=== PATIENT | female | born 1950 | race Caucasian/White ===

== ENCOUNTER 2018-10-19 12:11 | Inpatient (IN) ==
[~2018-10-19 12:11] MED LIST: AZACTAM 1 GM in NS 50 ML IV SCH
[2018-10-19 14:35] LABS: URINE SOURCE CLEAN CATCH
[2018-10-19 15:00] LABS: HEMATOCRIT 27.1 % (37.0-47.0); HEMOGLOBIN 8.6 g/dL (12.0-16.0); MCV 90.9 FL (81-99); RBC 2.98 XMIL (4.2-5.4); WBC 12.57 X1000 (4.8-10.8)
[2018-10-19 15:01] LABS: BASO# 0.03 X1000 (0.0-0.2); BASO% 0.2 % (0.0-0.8); EOS# 0.28 X1000 (0.0-0.7); EOS% 2.2 % (0.0-10.0); IMM GRAN# 0.03 X1000 (0.0-0.04); IMM GRAN% 0.2 % (0.0-0.5); LYMPH# 1.56 X1000 (1.2-3.4); LYMPH% 12.4 % (20.5-51.1); MCH 28.9 PG (27-31); MCHC 31.7 g/dL (33-37); MONO% 7.2 % (1.7-9.3); MPV 9.1 FL (7.4-10.4); NEUT# 9.77 X1000 (1.4-6.5); NEUT% 77.8 % (42.2-75.2); PLT 474 X1000 (130-400); RDW 15.3 % (11.5-14.5); UR EPITHELIAL CELLS <10 /HPF (<10); URINE BACTERIA 3+ /HPF; URINE RBC TNTC /HPF (<10); URINE WBC TNTC /HPF (<10)
[2018-10-19 15:02] LABS: BILIRUBIN URINE NEGATIVE (NEGATIVE); BLOOD URINE LARGE (NEGATIVE); COLOR BROWN; GLUCOSE URINE NEGATIVE (NEGATIVE); KETONE URINE NEGATIVE (NEGATIVE); LEUKOCYTES URINE LARGE (NEGATIVE); NITRITE URINE NEGATIVE (NEGATIVE); PROTEIN URINE 200 mg/dL (NEGATIVE); SP GRAVITY URINE 1.009; TURBIDITY URINE TURBID (CLEAR); UROBILINOGEN URINE NORMAL (NORMAL)
[2018-10-19 16:11] LABS: URINE YEAST NONE SEEN
[2018-10-19 16:21] LABS: ALB/GLOB RATIO 1.3; ALBUMIN 3.9 g/dL (3.5-5.0); CALCIUM 9.4 mg/dL (8.8-10.2); CREATININE 2.8 mg/dL (0.5-0.9); TOTAL BILIRUBIN 0.18 mg/dL (0.20-1.00)
[2018-10-19] MEDS ORDERED: NS 1,000 ML IV ONE (16:26)
--- NOTE | 2018-10-19 16:26 | PROVIDER DOCUMENTATION ---
HPI-Female /OB/Breast - General Chief Complaint: Female Stated Complaint: FEMALE Time Seen by Provider: 10/19/18 16:15 Source: reports: patient Allergies/Adverse Reactions: Patient Allergies Allergy/AdvReac Type Severity Reaction Status Date / Time cephalexin [From Keflex] Allergy SWELLING Verified 04/22/18 17:25 Home Medications: Home Medication List Medication Instructions Recorded Confirmed Last Taken Type Amitriptyline [Elavil] 25 mg PO HS 06/09/14 04/22/18 04/21/18 History Atorvastatin Calcium 20 mg PO HS 06/09/14 04/22/18 04/21/18 History Furosemide 20 mg PO DAILY 06/09/14 04/22/18 04/21/18 History Hydroxyzine [Atarax] 25 mg PO TID PRN #20 tablet 07/04/15 04/22/18 04/21/18 Rx Insulin Detemir [Levemir] 50 unit SUBQ DAILY 07/04/15 04/22/18 04/21/18 History Sitagliptin Phos/Metformin HCl 1 tab PO BID 07/04/15 04/22/18 04/21/18 History [Janumet 50-1,000 mg Tablet] Tizanidine [Zanaflex] 1 tab PO DAILY 07/04/15 04/22/18 04/21/18 History Venlafaxine E.r. [Effexor Xr] 150 mg PO DAILY 07/04/15 04/22/18 04/21/18 History Tramadol [Ultram] 50 mg PO Q8HR #20 tablet 04/24/16 04/22/18 04/21/18 Rx Hydrocodone/APAP 10 mg/325 mg 1 each PO Q6H PRN #12 tablet 08/06/16 04/22/18 04/21/18 Rx [[place]-10] Nitrofurantoin Monohyd/M-Cryst 100 mg PO BID #10 cap 04/23/18 Unknown Rx [Macrobid 100 mg Capsule] - History of Present Illness-Female /OB Nature of Presenting Problem: 68 YOF WITH PMH OF DM PRESENTS WITH C/O DYSURIA AND HEMATURIA. SHE REPORTS THIS HAS BEEN PRESENT X 4 DAYS. SHE HAS BEEN FEBRILE AT HOME WITH A TMAX OF 102, SHE IS CURRENTLY AFEBRILE. SHE C/O B FLANK PAIN. DENIES N/V/D, SOB, CP. SHE DEOS AHVE HX OF FREQUENT UTI'S Does patient report she is ?: No Location of complaint: reports: suprapubic, generalized flank Radiation: reports: none Quality of Pain: reports: aching Onset/Duration: reports: 4 days ago Timing: reports: still present Context/Activities at Onset: reports: none Vaginal Symptoms: reports: no symptoms Vaginal Bleeding Amount: None Urinary Symptoms: reports: dysuria, frequency, hematuria, hesitancy, urgency, low back pain Related Symptoms: reports: no symptoms Associated Symptoms: reports: fever/chills Similar Symptoms Previously?: Yes Recently seen or treated by another doctor?: No Review of Systems - Adult - REVIEW OF SYSTEMS - ADULT Constitutional: reports: see HPI, fever. denies: no symptoms reported, chills, fatique, night sweats, weight gain, weight loss, other Eyes: reports: no symptoms reported. denies: see HPI, discharge, dry eyes, decreased vision, blurred vision, double vision, eye pain, redness, other Ears, Nose, Mouth & Throat: reports: no symptoms reported. denies: see HPI, ear discharge, ear pain, hearing loss, tinnitus, epistaxis, sinus problem, nose pain, loose teeth, mouth/dental pain, mouth swelling, hoarseness, throat pain, throat swelling, other Cardiovascular: reports: no symptoms reported. denies: see HPI, chest pain, edema, heart murmur, irregular heart rate, orthopnea, palpitations, poor circulation, PND, syncope, other Respiratory: reports: no symptoms reported. denies: see HPI, chronic cough, cough, dyspnea on exertion, excessive sputum production, hemoptysis, pleurisy, shortness of breath, wheezing, other Gastrointestinal: reports: no symptoms reported. denies: see HPI, abdominal pain, hematemesis, constipation, diarrhea, difficulty swallowing, frequent heartburn, nausea, poor appetite, rectal bleeding, vomiting, other Genitourinary: reports: see HPI, dysuria, frequency, flank pain, frequent UTI's, hematuria, hesitency, urgency Musculoskeletal: reports: no symptoms reported. denies: see HPI, bone pain, b ack pain, frequent leg cramps, joint pain, joint swelling, muscle aches, muscle weakness, neck pain, other Integumentary: reports: no symptoms reported. denies: see HPI, hives, hair loss, itching, mole changes, nail changes, rash, skin sores/ulcer, skin thickening, other Neurological: reports: no symptoms reported. denies: see HPI, ataxia, dizzin ess/vertigo, headache/migraines, loss of balance, numbness, paresthesia, seizure, slurred speech, syncope, tremors, other Psychiatric: reports: no symptoms reported. denies: see HPI, anxiety, anti- depressant use, alcohol/drug dependence, depression, emotional problems, inso mnia, panic attacks, suicidal thoughts, other Endocrine: reports: no symptoms reported. denies: see HPI, change in skin pigment, excessive sweating, goiter, cold intolerance, heat intolerance, increased hunger, increased thirst, polyuria, other Hematologic/Lymphatic: reports: no symptoms reported. denies: see HPI, blood clots, easy bruising, low blood count, lymphedema, prolonged bleeding, swollen lymph nodes, transfusions, other Allergic/Immunologic: reports: no symptoms reported. denies: see HPI, allergic reactions, allergic rhinitis, asthma, eczema, food allergy, frequent infections, hay fever, hives, positive PPD, urticaria, other Past History - Adult - PAST MEDICAL HISTORY-ADULT Review of Records: reports: Nursing Assessment Review, Social history reviewed & non-contributory. Major Childhood Illnesses: reports: denies history Cardiovascular: reports: CHF, HTN Respiratory: reports: denies history Gastrointestinal: reports: denies history Obstetrical/Gynecological: reports: denies history Genitourinary: reports: denies history Musculoskeletal: reports: arthritis (RA), chronic pain Neurological: reports: denies history Endocrine/Immune: reports: Diabetes Other Conditions: reports: denies history - PRIOR SURGERIES/PROCEDURES Surgical/Procedure History: reports: hernia repair - IMMUNIZATION STATUS Childhood Immunizations: See Nurse Assessment Flu Vaccine: See Nurse Assessment - FAMILY HISTORY Family History: reviewed, not pertinent Physical Exam-General - PHYSICAL EXAM-ADULT Initial Vital Signs Reviewed: Yes - CONSTITUTIONAL General Appearance: alert, no apparent distress - EYES Eyes: PERRL/EOMI - HEAD, EARS, NOSE, MOUTH & THROAT HENMT: normocephalic/atraumatic, moist mucous membranes - NECK Neck: non-tender, full range of motion, supple - RESPIRATORY Respiratory: chest non-tender, lungs clear, normal breath sounds - CARDIOVASCULAR Cardiovascular: normal peripheral pulses, tachycardia - GASTROINTESTINAL (ABDOMEN) Abdominal Exam: normal bowel sounds, non tender, soft - LYMPHATIC Lymphatic: no adenopathy - MUSCULOSKELETAL Back Exam: normal inspection, CVA tenderness (BILATERAL). negative: no CVA tenderness Extremity: normal range of motion, non-tender, normal gait - SKIN Integumentary: normal color, normal turgor, warm/dry - NEUROLOGIC Neurologic: grossly normal - PSYCHIATRIC Psych/Mental Status: normal mood/affect, oriented x 3 Progress - PLAN OF CARE/RESULTS Progress/Plan/Lab Results: Vital Signs - 8 hr 10/19/18 12:33 10/19/18 15:55 Temperature 99.2 F 98.3 F Pulse Rate 117 H 104 H Respiratory Rate 18 20 Blood Pressure 123/65 150/69 O2 Sat by Pulse Oximetry 98 97 Laboratory Results - last 24 hr 10/19/18 10/19/18 10/19/18 12:45 12:45 12:45 WBC 12.57 H RBC 2.98 L Hgb 8.6 L Hct 27.1 L MCV 90.9 MCH 28.9 MCHC 31.7 L RDW Std Deviation 15.3 H Plt Count 474 H MPV 9.1 Immature Gran % (Auto) 0.2 Neut % (Auto) 77.8 H Lymph % (Auto) 12.4 L Dare % (Auto) 7.2 Eos % (Auto) 2.2 Baso % (Auto) 0.2 Immature Gran # (Auto) 0.03 Neut # (Auto) 9.77 H Lymph # (Auto) 1.56 Dare # (Auto) 0.90 H Eos # (Auto) 0.28 Baso # (Auto) 0.03 Sodium 138 Potassium 5.0 Chloride 102 Carbon Dioxide 16 L Anion Gap 20 BUN 58 H Creatinine 2.8 H Estimated GFR/1.73 m2 17 BUN/Creatinine Ratio 21 Glucose 182 H Calculated Osmolality 297 Calcium 9.4 Total Bilirubin 0.18 L AST 9 L ALT 10 Alkaline Phosphatase 94 Total Protein 7.0 Albumin 3.9 Globulin 3.1 Albumin/Globulin Ratio 1.3 Urine Source CLEAN CATCH Urine Color BROWN Urine Turbidity TURBID Urine pH 6.0 Ur Specific [place] 1.009 Urine Protein 200 A Ur Glucose (Stick) NEGATIVE Ur Ketones (Stick) NEGATIVE Urine Blood LARGE A Urine Nitrite NEGATIVE Urine Bilirubin NEGATIVE Urobilinogen Dipstick NORMAL Urine Leukocytes LARGE A Urine WBC (Auto) TNTC A Urine RBC (Auto) TNTC A U Epithel Cells (Auto) <10 Urine Bacteria (Auto) 3+ Urine Crystals Not Reportable Small Round Cells Not Reportable Urine Casts Not Reportable Urine Yeast-like Cells NONE SEEN Orders Category Date Time Status Saline Loc NOW Care 10/19/18 16:26 Active BC [BLOOD CULTURE] [BLDCUL] Stat Lab 10/19/18 17:17 Uncollected CBC WITH DIFF [HEME] Stat Lab 10/19/18 12:45 Completed CMP [COMPREHENSIVE METABOLIC PANEL] [CHEM] Stat Lab 10/19/18 12:45 Completed LACTATE, PLASMA [CHEM] Stat Lab 10/19/18 17:28 Uncollected URINALYSIS W/POSS RFLX CULT [URINALYSIS] Stat Lab 10/19/18 12:45 Completed URINE CULTURE [RM] Routine Lab 10/19/18 15:24 Received URINE MANUAL MICROSCOPIC [URINALYSIS] Stat Lab 10/19/18 12:45 Completed 0.9% Sodium Chloride Inj [Ns] 1,000 ml Med 10/19/18 16:26 Discontinued IV 999 mls/hr Ciprofloxacin 400 mg/D5w [Cipro 400 mg/D5w] Med 10/19/18 17:00 Active 400 mg in 200 ml IV ONCE Ciprofloxacin 400 mg/D5w [Cipro 400 mg/D5w] Med 10/19/18 16:30 Ordered 400 mg in 200 ml IV Q12H Result Diagrams: 10/19/18 12:45 10/19/18 12:45 - CONSULTS/PCP/HOSPITALIST Notification #1 *Consult/PCP/Hospitalist*: KENNA MAHER Time Discussed: 17:48 Consult Disposition: Admit Departure - Departure Date of Disposition Decision: 10/19/18 Time of Disposition Decision: 17:48 DIAGNOSIS: REYNALDO (acute kidney injury), UTI (urinary tract infection) Disposition: ADMITTED INPATIENT 09 Certified Medical Emergency: Emergent Condition: Stable Referrals and Follow-Ups: Love Harrell MD [Primary Care Provider] - - Critical Care Note This patient required my direct & personal management of CC.: No Attestation - Physician/ JAROD Attestation Patient care was provided by Advanced Practice Provider:: Yes Advanced Practice Provider:: Chela Maria Advanced Practice Provider documentation review:: The Mid-level provider documentation, treatment plan and medical decision making was reviewed by the physician who agrees with all treatment and medical decision making by the MLP. The physician spent face to face time with patient:: No Advanced Practice Provider documentation review:: Supervising physician onsite and consulted in the evaluation and care of this patient. The physician did not have a face to face encounter with the patient.
[2018-10-19] MEDS ORDERED: CIPRO 400 MG/D5W 400 MG/200 ML IVPB IV SCH (16:30)
[2018-10-19] MEDS ORDERED: CIPRO 400 MG/D5W 400 MG/200 ML IVPB IV ONE (17:00)
[2018-10-19] MEDS ORDERED: ZOFRAN IV PRN (18:03)
[2018-10-19] MEDS ORDERED: NS 1,000 ML IV SCH (18:15)
[2018-10-19] MEDS ORDERED: AZACTAM 1 GM in NS 50 ML IV ONE (18:30)
--- NOTE | 2018-10-19 19:07 | HISTORY AND PHYSICAL ---
CHIEF COMPLAINT: Hematuria, back pain. HISTORY OF PRESENT ILLNESS: This is a 68-year-old female with a prior history of congestive heart failure, diabetes, hypertension, who presents to the emergency room complaining of about 4 to 5 days of hematuria, dysuria and low back pain. She states that she feels like she has a urinary tract infection as this was her symptom prior. She complains of subjective fever, having chills and generalized body aches. She was noted to have a temperature of 99.2 degrees on arrival to the emergency room. PAST MEDICAL HISTORY: 1. Chronic kidney disease. 2. Congestive heart failure. 3. Diabetes mellitus. 4. Hyperlipidemia. 5. Hypertension. 6. Rheumatoid arthritis. PAST SURGICAL HISTORY: Hysterectomy, left foot surgery. SOCIAL HISTORY: She denies alcohol, tobacco, or illicit drug use. ALLERGIES: Cephalexin which causes swelling all over her body. HOME MEDICATIONS: A list will be obtained by the nursing staff and once verified, we will review and restart as appropriate. REVIEW OF SYSTEMS: Discussed with patient with pertinent positives stated in the HPI. She denied any syncope, dizziness, chest pain, palpitations, shortness of breath, cough, any PND, orthopnea, any nausea, vomiting, diarrhea, constipation, black or bloody vomitus or stools. PHYSICAL EXAMINATION: GENERAL: This is a 68-year-old female who is lying on the stretcher in the emergency room in no distress. VITAL SIGNS: Blood pressure is 123/65 with a heart rate of 101, respirations are 20, temperature is 98.3 degrees oral with room air saturations 97 to 98%. EYES: Pupils equal, round, react to light. EOMs are intact. Sclerae anicteric. HEENT: Head is normocephalic, atraumatic. Mucous membranes are moist. NECK: Is supple. Trachea midline. CARDIOVASCULAR: Regular rate and rhythm. S1, S2 appreciated. She has some pretibial edema which she states is chronic. Calves are nontender bilateral with peripheral pulses palpable x4 extremities. PULMONARY: Breath sounds clear. No increased work of breathing noted. Chest rises and falls symmetric with respiration. GASTROINTESTINAL: Soft, nontender, nondistended with bowel sounds in all 4 quadrants. GENITOURINARY: She does have bilateral CVAT. She has no suprapubic tenderness. NEUROLOGIC: She is alert oriented x3. SKIN: Warm and dry. LABS: WBC is 12.5 with hemoglobin 8.6, hematocrit 27.1, platelets of 474,000 sodium 138, potassium 5, BUN 58 with a creatinine of 2.8 and glucose of 182. Urinalysis reveals large amount of blood with large leukocytes, too numerous to count red blood cells and white blood cells, 3+ bacteria. This is a clean-catch specimen. Urine culture is pending. ASSESSMENT: This is a 68-year-old female who presents with 4 to 5 days of low back pain, hematuria, dysuria. She was found to have pyelonephritis by exam. 1. Pyelonephritis/urinary tract infection. Urine cultures have been obtained. We will start aztreonam for antibiotic coverage and then further antibiotics will be culture driven. 2. Acute kidney injury in the setting of chronic kidney disease. We will give IV hydration. We will renal dose medications, hold any renal toxic medications. Repeat labs in the morning. 3. Diabetes mellitus. She will be placed on pattern blood glucose with sliding scale insulin. 4. Hypertension. We are aware. We will continue home medicines as appropriate. 5. Deep vein thrombosis prophylaxis. We will use sequential compression devices and gastrointestinal prophylaxis, we will use Prilosec. Plan discussed with Dr Hair. Further treatments pending hospital course. Dictated by KENNA Rao for Tirso Hair MD cc: KENNA Rao MD I agree with most components of history, physical, assessment and plan. A separate addendum has been dictated. [facility]
--- NOTE | 2018-10-19 20:11 | HISTORY AND PHYSICAL ---
ADDENDUM REPORT Addendum to history and physical dictated by nurse practitioner. I agree with most of the history, physical, assessment, and plan. HISTORY: In brief, Ms Young is a 68-year-old lady with past medical history of insulin-dependent diabetes mellitus type 2, hysterectomy, multiple UTIs, essential hypertension, chronic pain, hyperlipidemia who comes in with chief complaints of hematuria, dysuria and abdominal pain with fever of about 101 to 102 degrees Fahrenheit for 2 weeks duration. In the emergency room she was found to have leukocytosis, acute kidney injury and anemia, so the hospitalist team has been consulted for further management. At the time of my evaluation, she is not feeling good. She is complaining of bilateral flank pain. She is complaining of urinary frequency as well. She denies known history of urinary stone. However, she does mention she has a cystocele and she has not seen any castings trimmer. VITAL SIGNS: Currently, temperature 98.3 degrees, pulse 104, respiratory 20, blood pressure 150/69, saturating 97% room air. PHYSICAL EXAMINATION: Morbidly obese not in any acute distress. Oral cavity is dry. LUNGS: Air entry bilaterally equal. No wheeze, rhonchi, crackles. CARDIOVASCULAR: S1, S2 normal. She has a systolic crescendo-decrescendo murmur best heard over 2nd intercostal space with radiation to right carotid. No rub or gallop. ABDOMEN: Obese, soft. There is a mass palpable on the right lower quadrant which is tender. She also has bilateral costovertebral angle tenderness. She has a large abdominal hernia. She does not have lower extremity edema. She is alert and oriented x3. Examination is nonfocal. LABORATORY DATA: Significant for leukocytosis, normocytic anemia, thrombocytosis, acute kidney injury. Low bicarbonate, pyuria, hematuria. Urine culture is in lab. Blood culture has not been collected. ASSESSMENT AND PLAN: 1. Sepsis due to acute cystitis versus pyelonephritis. 2. Acute blood loss anemia due to hematuria. 3. Acute kidney injury. 4. Suspected aortic stenosis. 5. Constipation. PLAN: Start patient on intravenous fluids, intravenous aztreonam considering previous angioedema to cephalosporins. Follow-up CT scan of the abdomen and pelvis to rule out any nephrolithiasis. I will resume her home medication once they are reconciled. DISPOSITION: I will continue to monitor patient inside the hospital. We will follow up blood culture, urine culture. All of her questions have been answered. cc: Tirso Hair MD
--- NOTE | 2018-10-19 20:30 | Diag Imaging Result Doc PS360 ---
EXAM: CT RENAL STONE SEARCH 10/19/2018 HISTORY: pyelonephritis, flank pain TECHNIQUE: This exam was performed using automated exposure control, adjustment of mA or kV according to patient size, and/or use of iterative reconstruction technique. COMMENT: The current study is compared with the previous study of 04/02/2013. There is a small nodule in the right lower lobe anteriorly which has not changed significantly since the previous examination. There are fibrotic changes in the inferior lingula. There is some fluid in the stomach. There is a nodule in the medial lobe of the left adrenal gland measuring 1.8 cm in diameter with a CT density of -2 Hounsfield units. This is presumably an adenoma and has not changed significantly since the previous study. There are no apparent gallstones. There is no evidence of appendicitis. There is no evidence of hydronephrosis. There is some slight perinephric stranding on the right which was not present at the time the previous study. There is no evidence of urolithiasis. There is a fair amount of stool present in the right colon. There is a segment of the transverse colon which passes through a defect in the anterior abdominal wall. There is some stool beyond this point, but the colon is more distended proximally. There is another defect on the left side which contains some herniated fat. These findings were also present at the time of the previous study. There is no evidence of abdominal aortic aneurysm. There is no evidence of free fluid. The urinary bladder is slightly distended and thickened in appearance. There are degenerative changes in the symphysis pubis. There is gas in the sacroiliac joints bilaterally and at the disc space at L5-S1 and L4-5. There is severe facet arthropathy bilaterally at L5-S1. IMPRESSION: Ventral hernias. Constipation. The possibility of pyelonephritis particularly on the right cannot be excluded in the absence of IV contrast. The possibility of cystitis is suspected. Other nonacute findings as described above. Electronically signed by Marcell Bautista 10/19/2018 8:28 PM
[2018-10-19] MEDS ORDERED: HUMALOG SUBQ SCH (21:00)
[2018-10-19] MEDS: LIPITOR PO SCH (21:31)
[2018-10-19] MEDS: ELAVIL PO SCH (21:31)
[2018-10-19] MEDS: LR 1,000 ML IV SCH (21:32)
[2018-10-19] MEDS: MIRALAX PO SCH (21:33)
[2018-10-19] MEDS: HUMALOG SUBQ SCH (21:41)
[2018-10-19] MEDS: NORCO-10 PO PRN (22:54)
[2018-10-20] MEDS: AZACTAM 1 GM in NS 50 ML IV SCH ×3 (04:08→21:05)
[2018-10-20] MEDS: LR 1,000 ML IV SCH ×2 (04:08→14:35)
[2018-10-20] MEDS: HUMALOG SUBQ SCH ×3 (06:04→21:06)
[2018-10-20] MEDS: NORCO-10 PO PRN ×3 (07:31→21:07)
[2018-10-20 07:58] LABS: BASO# 0.03 X1000 (0.0-0.2); BASO% 0.3 % (0.0-0.8); EOS# 0.32 X1000 (0.0-0.7); EOS% 2.7 % (0.0-10.0); HEMATOCRIT 24.3 % (37.0-47.0); HEMOGLOBIN 7.5 g/dL (12.0-16.0); IMM GRAN# 0.03 X1000 (0.0-0.04); IMM GRAN% 0.3 % (0.0-0.5); LYMPH# 2.06 X1000 (1.2-3.4); LYMPH% 17.6 % (20.5-51.1); MCH 28.5 PG (27-31); MCHC 30.9 g/dL (33-37); MCV 92.4 FL (81-99); MONO# 0.93 X1000 (0.11-0.59); MONO% 7.9 % (1.7-9.3); MPV 8.4 FL (7.4-10.4); NEUT# 8.36 X1000 (1.4-6.5); NEUT% 71.2 % (42.2-75.2); PLT 445 X1000 (130-400); RBC 2.63 XMIL (4.2-5.4); RDW 15.6 % (11.5-14.5); WBC 11.73 X1000 (4.8-10.8)
[2018-10-20 08:23] LABS: CALCIUM 9.1 mg/dL (8.8-10.2); CREATININE 2.3 mg/dL (0.5-0.9); MAGNESIUM 1.4 mg/dL (1.5-2.7); POTASSIUM 4.9 mmol/L (3.5-5.1)
[2018-10-20] MEDS: MAGNESIUM SULFATE 2 GM/S.W.I. 2 GM/50 ML IVPB IV SCH ×2 (10:12→12:59)
[2018-10-20] MEDS: MIRALAX PO SCH ×2 (10:12→21:06)
[2018-10-20] MEDS: LANTUS INSULIN SUBQ SCH (10:15)
[2018-10-20 11:30] LABS: IRON SATURATION 15 %; TIBC 255 ug/dL; TOTAL IRON 38 ug/dL (49-151); UNBOUND IRON 217 ug/dL (112-346)
--- NOTE | 2018-10-20 11:30 | PROGRESS NOTE ---
DATE: 10/20/2018 INTERVAL HISTORY: Ms. Reyes did not have any acute overnight events. She states she continues to have hematuria. Her vitals were unremarkable. Her WBC is improving. Hypomagnesemia is currently improving. Acute kidney injury is improving as well. She states she is feeling the same as yesterday. We discussed about CT scan finding of constipation, cystitis and pyelonephritis. I answered all of her questions. VITALS: Temperature 97.6 degrees, pulse 90, respiratory rate 18, blood pressure 140/60, and saturating 99% on room air.General: Morbidly obese not in any acute distress. HEENT: Oral cavity is moist. Lungs: Air entry bilaterally equal. No wheeze, rhonchi, or crackles. Cardiovascular: S1, S2 normal. Systolic crescendo-decrescendo murmur best heard over 2nd intercostal space with radiation to carotids. No rub or gallop. Abdomen: Obese, soft. There is right quadrant flank tenderness. There is also suprapubic tenderness. There are large abdominal hernias in supraumbilical and left lower quadrant region without any significant tenderness. Neurologic: She is alert and oriented x3. LABORATORY: Labs are suggestive of leukocytosis, normocytic anemia, normal platelet count, and thrombocytosis. She does have improvement in BUN and creatinine as compared to yesterday. Hypomagnesemia is currently being repleted. Urine culture and blood cultures are in lab. Renal CT yesterday performed, and had ventral hernias, constipation and suspicion for pyelonephritis and acute cystitis. ASSESSMENT AND PLAN: 1. Sepsis due to acute cystitis and acute right pyelonephritis. Follow up blood culture and urine culture. Continue intravenous lactated Ringer's, intravenous aztreonam since previously she had Escherichia coli only intermediate sensitive to Zosyn. She had angioedema to Keflex. 2. Gross Hematuria with pyelonephritis. No evidence of nephrolithiasis. Insert Prado catheter for close input and output monitoring. She does have history of cystocele. If her hematuria does not resolve, my plan is to consult Urology tomorrow. Her pyelonephritis could be a contributing factor. She previously had hysterectomy. 3. Anemia. This could be acute blood loss anemia in the setting of hematuria. I will repeat CBC tomorrow morning, and we will transfuse with a goal hemoglobin of more than 7. I will also get iron panel done. 4. Severe constipation. Start patient on MiraLAX and bisacodyl. 5. Others: Chronic back pain and hyperlipidemia. Continue home amitriptyline, [place] and atorvastatin; continue insulin with insulin glargine and sliding scale for history of insulin- dependent diabetes mellitus. 6. Disposition: I will continue to monitor patient inside the hospital. Plan of care discussed with her. All of her questions have been answered. cc: MD NELLY Garcia
[2018-10-20 11:57] LABS: FERRITIN 217 ng/mL (13-150)
[2018-10-20] MEDS: DULCOLAX PR SCH ×2 (13:10→21:05)
[2018-10-20] MEDS ORDERED: VANCOMYCIN IV PER PHARMACY MISC SCH (17:00)
[2018-10-20] MEDS: DITROPAN PO SCH (17:21)
[2018-10-20] MEDS ORDERED: VANCOMYCIN 1,500 MG in NS 250 ML IV ONE (18:00)
[2018-10-20] MEDS: ELAVIL PO SCH (21:04)
[2018-10-20] MEDS: LIPITOR PO SCH (21:04)
[2018-10-20] MEDS: ATARAX PO PRN (22:54)
[2018-10-21] MEDS: LR 1,000 ML IV SCH ×2 (05:09→21:05)
[2018-10-21] MEDS: AZACTAM 1 GM in NS 50 ML IV SCH ×3 (06:30→21:07)
[2018-10-21] MEDS: HUMALOG SUBQ SCH ×4 (06:33→20:57)
[2018-10-21 09:05] LABS: BASO# 0.01 X1000 (0.0-0.2); BASO% 0.1 % (0.0-0.8); EOS# 0.36 X1000 (0.0-0.7); EOS% 3.7 % (0.0-10.0); HEMATOCRIT 24.2 % (37.0-47.0); HEMOGLOBIN 7.5 g/dL (12.0-16.0); IMM GRAN# 0.02 X1000 (0.0-0.04); IMM GRAN% 0.2 % (0.0-0.5); LYMPH# 1.29 X1000 (1.2-3.4); LYMPH% 13.3 % (20.5-51.1); MCH 28.7 PG (27-31); MCV 92.7 FL (81-99); MONO# 0.45 X1000 (0.11-0.59); MONO% 4.6 % (1.7-9.3); MPV 8.5 FL (7.4-10.4); NEUT# 7.59 X1000 (1.4-6.5); NEUT% 78.1 % (42.2-75.2); PLT 440 X1000 (130-400); RBC 2.61 XMIL (4.2-5.4); RDW 15.5 % (11.5-14.5); WBC 9.72 X1000 (4.8-10.8)
[2018-10-21 09:26] LABS: CALCIUM 8.8 mg/dL (8.8-10.2); POTASSIUM 5.1 mmol/L (3.5-5.1)
[2018-10-21] MEDS: NORCO-10 PO PRN ×3 (10:22→20:55)
[2018-10-21] MEDS: LANTUS INSULIN SUBQ SCH (10:22)
[2018-10-21] MEDS: DITROPAN PO SCH ×3 (10:23→18:18)
[2018-10-21] MEDS: MIRALAX PO SCH ×2 (10:23→20:56)
[2018-10-21] MEDS: DULCOLAX PR SCH ×2 (10:23→20:56)
[2018-10-21] MEDS ORDERED: VANCOMYCIN 1,000 MG in NS 250 ML IV SCH (18:00)
--- NOTE | 2018-10-21 18:01 | PROGRESS NOTE ---
DATE: 10/21/2018 INTERVAL HISTORY: Patient still with some abdominal pain which is improved and some back pain which is approximately stable. Still with some fairly significant hematuria, although good urine output. No other new complaints. No acute events overnight. The patient states that the [place] she is on works well for her pain, but wears off prior to the next dose. REVIEW OF SYSTEMS: Twelve-point review of systems negative except as per interval history. LABS: WBC 9.7, hemoglobin 7.5, hematocrit 24.2, platelets 440. Sodium 141, bicarb 18, BUN 44, creatinine 2.0. Glucose 129 to 230. VITALS: T-max 98.6, pulse 91, respirations 18, blood pressure 146/63, O2 saturation 96% on room air. PHYSICAL EXAMINATION: General: No acute distress. Vitals: As above. HEENT: Normocephalic, atraumatic. Moist mucous membranes. Neck: No cervical adenopathy. Cardiovascular: Regular rate and rhythm. Stable murmur at left upper sternal border. Abdomen: Soft. Mild right CVA and suprapubic tenderness. Bowel sounds positive. Extremities: Peripheral pulses intact. No clubbing or cyanosis. Neurologic: Cranial nerves grossly intact. No focal deficits. Psychiatric: Normal mood and affect. Awake, alert, oriented x3. Skin: No new rashes or lesions identified. ASSESSMENT AND PLAN: 1. Sepsis due to acute urinary tract infection and acute right-sided pyelonephritis. Urine culture growing gram-negative rods. Blood cultures grew coag-negative Staphylococcus which is likely a contaminant. Previous urine cultures growing Escherichia coli sensitive to amikacin, cefepime, ceftazidime, Rocephin, gentamicin, Macrobid, and tobramycin. We will follow up final results of urine culture. Previous urine cultures with Escherichia coli sensitive primarily to cephalosporins which she is allergic to. P.o. options may be limited. Depending on final culture results, may consult Infectious Disease for recommendations. 2. Hematuria. No clots, but still with some fairly significant hematuria. Monitor 1 more day, but if it continues without improvement, then likely will consult Urology tomorrow. 3. Anemia. Blood counts with slight drop after admission, but otherwise pretty stable. No other hematuria. No signs or symptoms of active bleeding. No need for transfusion at this time. Continue to monitor blood counts. 4. Constipation, improving on MiraLAX and bisacodyl. 5. Chronic pain. Will increase frequency of [place] up to every 4 hours as needed. 6. Hyperlipidemia. Continue home statin. 7. Diabetes. Continue insulin. Reasonable control overall. 8. Acute kidney injury on chronic kidney disease stage 3. Baseline creatinine appears to be approximately 1.5. Creatinine 2.8 on admission, coming down with fluids and treatment of underlying issue to 2.0 today. Continue hydration. Monitor.
[2018-10-21] MEDS: ATARAX PO PRN (20:56)
[2018-10-21] MEDS: LIPITOR PO SCH (20:56)
[2018-10-21] MEDS: ELAVIL PO SCH (20:56)
[2018-10-22] MEDS: NORCO-10 PO PRN ×5 (01:51→20:01)
[2018-10-22] MEDS: AZACTAM 1 GM in NS 50 ML IV SCH (06:17)
[2018-10-22] MEDS: HUMALOG SUBQ SCH ×5 (06:22→21:31)
[2018-10-22] MEDS: LR 1,000 ML IV SCH ×4 (08:12→18:11)
[2018-10-22] MEDS: DITROPAN PO SCH ×3 (08:17→18:22)
[2018-10-22] MEDS: DULCOLAX PR SCH ×2 (08:18→21:15)
[2018-10-22] MEDS: MIRALAX PO SCH ×2 (08:18→21:15)
[2018-10-22] MEDS: LANTUS INSULIN SUBQ SCH (08:23)
[2018-10-22 08:55] LABS: BASO# 0.03 X1000 (0.0-0.2); BASO% 0.4 % (0.0-0.8); EOS# 0.41 X1000 (0.0-0.7); EOS% 4.9 % (0.0-10.0); HEMATOCRIT 22.3 % (37.0-47.0); HEMOGLOBIN 6.8 g/dL (12.0-16.0); IMM GRAN# 0.03 X1000 (0.0-0.04); IMM GRAN% 0.4 % (0.0-0.5); LYMPH# 1.79 X1000 (1.2-3.4); LYMPH% 21.5 % (20.5-51.1); MCH 28.2 PG (27-31); MCHC 30.5 g/dL (33-37); MCV 92.5 FL (81-99); MONO# 0.46 X1000 (0.11-0.59); MONO% 5.5 % (1.7-9.3); MPV 8.3 FL (7.4-10.4); NEUT# 5.59 X1000 (1.4-6.5); NEUT% 67.3 % (42.2-75.2); PLT 405 X1000 (130-400); RBC 2.41 XMIL (4.2-5.4); RDW 15.6 % (11.5-14.5); WBC 8.31 X1000 (4.8-10.8)
[2018-10-22 09:08] LABS: CREATININE 1.4 mg/dL (0.5-0.9); POTASSIUM 4.7 mmol/L (3.5-5.1)
--- NOTE | 2018-10-22 10:21 | INFECTIOUS DISEASE CONSULT REP ---
DATE: 10/22/2018 CONCLUSION: The patient has an E. coli urinary tract infection. On CT scan of the abdomen and pelvis, there appeared to be pyelonephritis and cystitis. One of two blood cultures is growing a coagulase negative staphylococcus. This is a contaminant and does not require antibiotic treatment. RECOMMENDATIONS: Because of the patient's severe cephalexin allergy, I agree with Dr. Stanley' choice of aztreonam to treat the patient with. I have increased the dose to 2 g IV every 8 hours. I put in a consult for a PICC and also I put in a consult for [employer] to supply aztreonam 2 g IV every 8 hours for 2 weeks. I have further requested that the patient keep the PICC in place for 1 week after the last antibiotic. I requested also that 2 days after finishing the antibiotics, the patient should get a urine culture, which the nursing service can get from her when they come to her house to do catheter care. I have also requested that the patient come to my office 3 weeks after the patient is discharged for followup. DISCUSSION: The patient was admitted to the hospital with a 2-week history of dysuria, fever, and right lower quadrant pain. She was found to have an E. coli urinary tract infection. She has been receiving aztreonam and vancomycin. The patient states that she is feeling much better than when she came in. PAST MEDICAL HISTORY/REVIEW OF SYSTEMS: Ears and Ears: The patient can hear well. She wears glasses. Neck: No stiffness. Respiratory: No cough or shortness of breath. Cardiac: No chest pain or palpitations. GI: No nausea, vomiting, or diarrhea. : See present illness. The patient had also some right lower quadrant pain and this is getting better also. DEVELOPMENT VICE PRESIDENT HISTORY: The patient is a 4, para 4, AB 0. She has had a hysterectomy and bilateral salpingo-oophorectomy. PREVIOUS HOSPITALIZATIONS AND OPERATIONS: She has had 4 labor and deliveries, a hysterectomy, a bilateral salpingo-oophorectomy, and removal of a benign mass that was in the patient's abdomen. MEDICAL DISEASES: Positive for diabetes mellitus, hypertension, and hyperlipidemia. INFECTIOUS DISEASE HISTORY: Positive for UTI. FAMILY HISTORY: Positive for diabetes mellitus and hypertension. [place]IAL HISTORY[place] . She lives alone. She has cats for pets. She does not smoke cigarettes or drink alcoholic beverages or abuse drugs. ALLERGIES: The patient has an allergy to Keflex manifested by swelling. HOME MEDICATIONS: Elavil, atorvastatin, fenofibrate, furosemide, insulin, lisinopril, Zanaflex, and Effexor. PHYSICAL EXAMINATION: Vital Signs: Temperature is 98.2 degrees, pulse 97, respirations 18, blood pressure 161/63, the patient weighs 202 pounds. General: This is an obese, elderly female. She is in no acute distress. Head, Eyes, Ears, Nose, and Throat: She can hear my spoken words and see near objects. She does not have any white coating on her tongue. Neck: No meningismus. Lungs: Clear to auscultation. Cardiovascular: Heart rate is regular. Abdomen: Soft and nontender. There are abdominal wall hernias present. Neurologic: The patient is alert. She can move her extremities. There is no tremor. Her sensation is intact to touch. Her memory as regarding her medical history was slightly diminished. Integument: No rash Thank you for the consult. cc: Yusuf Alcocer MD [facility]
[2018-10-22 10:44] LABS: INR 1.2; PROTIME 15.4 Seconds (11.0-16.0)
[2018-10-22] MEDS ORDERED: NS 250 ML ONE ×2 (10:45→14:30)
[2018-10-22] MEDS: AZACTAM 2 GM in NS 100 ML IV SCH ×2 (13:41→22:00)
--- NOTE | 2018-10-22 15:53 | INFECTIOUS DISEASE CONSULT REP ---
DATE: 10/22/2018 ADDENDUM: If you could put in under conclusion, the patient has 1 of 2 blood cultures positive for a coagulase-negative Staph. This is a contaminant. RECOMMENDATIONS: Because the coagulase-negative Staph in 1 of 2 blood cultures is a contaminant, it does require antibiotic treatment. cc: Yusuf Alcocer MD
[2018-10-22] MEDS ORDERED: CITRATE OF MAGNESIA PO ONE (15:55)
--- NOTE | 2018-10-22 18:21 | PROGRESS NOTE ---
DATE: 10/22/2018 INTERVAL HISTORY: Patient still with fairly significant hematuria. Appears grossly less bloody than previous, but significant clots noted in her Prado. The Prado does appear to be continuing to drain. Suprapubic pain essentially resolved. flank pain continues to improve slowly. Remains afebrile. No other acute events. No new complaints. REVIEW OF SYSTEMS: A 12-point review of systems is negative, except as per interval history. LABORATORY: WBC 8.3, hemoglobin 6.8, hematocrit 22.3, platelets 405,000. INR 1.2. Sodium 139, potassium 4.7, bicarbonate 21, BUN 33, creatinine 1.7, glucose 159. OBJECTIVE: vital signs: Temperature max 98.6 degrees, pulse 99, respirations 18, blood pressure 166/70, O2 saturation 96% on room air. General: No acute distress. HEENT: Normocephalic, atraumatic. Moist mucous membranes. No cervical adenopathy. Cardiovascular: Regular rate and rhythm. Stable murmur of left upper sternal border, unchanged. Abdomen: Soft. Mild right CVA tenderness, much improved. Suprapubic tenderness, almost resolved. Abdominal hernia, stable. Bowel sounds positive. Extremities: Peripheral pulses intact. No clubbing or cyanosis. Neurologic: Cranial nerves grossly intact. No focal deficits. Psychiatric: Normal mood and affect. Awake, alert, oriented x3. Skin: No new rashes or lesions identified. ASSESSMENT AND PLAN: 1. Sepsis due to Escherichia coli urinary tract infection and acute right-sided pyelonephritis. Urine culture is growing E. coli resistant to essentially everything other than cephalosporins and carbapenems. Unfortunately, patient is significantly allergic to cephalosporins, limiting options. Discussed the case with Infectious Disease, but they believe our only option is likely aztreonam. We will see about setting patient up with a PICC line so she can be set up for home IV antibiotics. Blood cultures remain negative, afebrile. Does appear to be doing okay. 2. Hematuria. Overall, degree of blood in urine appears to be slightly improved, but now passing some fairly significant clots. Given clots and her drop in blood count, we will go ahead and consult Urology for recommendations and make sure she does not need bladder irrigation. 3. Likely acute blood loss anemia. Patient with slight drop in blood counts initially after admission, but has now decreased to a fairly significant degree, likely related to her ongoing hematuria. Hemoglobin 6.8 this morning. Transfusing 1 unit and monitoring closely. 4. Constipation. Improved with MiraLAX and bisacodyl. 5. Acute and chronic pain. Improved control with Greig q.4 hours. 6. Hyperlipidemia. Continue statin. 7. Diabetes. Continue insulin. Reasonable control overall. 8. Acute kidney injury on chronic kidney disease 3. Essentially back to baseline with creatinine 1.4 at this point. 9. Hypertension. Patient has been off of her home lisinopril and Lasix because of acute kidney injury. Blood pressure pretty consistently elevated. We will start her on a little Norvasc to try to improve control. NELLY
[2018-10-22] MEDS: NORVASC PO SCH (18:22)
[2018-10-22] MEDS: LIPITOR PO SCH (21:15)
[2018-10-22] MEDS: ELAVIL PO SCH (21:15)
--- NOTE | 2018-10-22 22:04 | CONSULTATION ---
DATE OF CONSULTATION: 10/22/2018 CHIEF COMPLAINT: 1. Hematuria. 2. Urinary tract infection. HISTORY OF PRESENT ILLNESS: Ms. Reyes is a 68-year-old with chronic kidney disease, congestive heart failure, type 2 diabetes, hyperlipidemia, hypertension and rheumatoid arthritis, who presents in consultation regarding urinary tract infection, hematuria, dysuria and urinary incontinence. The patient presented to the emergency room on 10/19/2018 with concerns for possible infection. She was having fevers at home as well as chills and generalized aches. The patient's temperature on arrival was 99.2 degrees. The patient is slightly tachycardic. She is admitted for possible urinary tract infection. The patient has been having hematuria for several days, per her report, and having back pain. The patient states that she has been treated multiple times for urinary tract infections, but previously had not had history of recurrent infections. The patient states that she urinary incontinence frequently both describing urgency as well as stress-induced incontinence. The patient denies any prior incontinence procedures. She does feel that she has to occasionally garcia to the bathroom. A CT scan was performed at admission which showed no evidence of hydronephrosis or obstructing stones. The patient did have a distended bladder with evidence of perivesical inflammation and stranding. Indwelling catheter was then inserted and is draining clear yellow urine today. The patient states that she was having bloody urine yesterday. She overall feels like her energy is improving and she has not had any fever since admission. Urology was consulted for recommendations. PAST MEDICAL HISTORY: 1. Chronic kidney disease. 2. Congestive heart failure. 3. Type 2 diabetes. 4. Hyperlipidemia. 5. Hypertension. 6. Rheumatoid arthritis. PAST SURGICAL HISTORY: 1. Hysterectomy. 2. Left foot surgery. ALLERGIES: Keflex. HOME MEDICATIONS: 1. Amitriptyline 100 mg p.o. 2. Atorvastatin 20 mg p.o. 3. Fenofibrate 54 mg p.o. 4. Lasix 20 mg p.o. 5. Levemir 80 units subcutaneous daily. 6. Lisinopril 20 mg daily. 7. Zanaflex 1 tablet p.o. t.i.d. 8. Effexor 150 mg p.o. daily. 9. Oxybutynin 5 mg t.i.d. SOCIAL HISTORY: Denies tobacco, alcohol or illicit drug use. FAMILY HISTORY: Denies malignancy. REVIEW OF SYSTEMS: A 12-point review of systems was performed, with all pertinent positives and negatives in HPI. PHYSICAL EXAMINATION: Temperature 98.7 degrees, heart rate 90, blood pressure 170/80, oxygen saturation 98% on room air.General: No acute distress. Resting comfortably in bed, alert and oriented x3. HEENT: Normocephalic, atraumatic. Pupils equal, round and reactive to light. Mucous membranes moist. Cardiovascular: No evidence of tachycardia. Regular rate and rhythm. No evidence of lower extremity edema. Respiratory: Good respiratory effort without audible wheezing or rales. No increased work of breathing. Abdomen soft, nontender, nondistended. No palpable masses or hepatosplenomegaly. Genitourinary: No suprapubic tenderness. No CVA tenderness. Urethral catheter in place, draining clear yellow urine. No evidence of any clots. Light pinkish urine seen in catheter bag. Musculoskeletal: Moves all extremities. No obvious deformities. Neurologic: Gross motor and sensory intact. Skin: No obvious skin lesions or rashes. LABORATORY DATA: White blood cell count 8.3, hemoglobin 6.8, hematocrit 22.3, platelets 405,000. Sodium 139, potassium 4.7, chloride 108, bicarbonate 21, BUN 33, creatinine 1.4, calcium 9.0. IMAGING DATA: CT abdomen and pelvis images were reviewed from 10/19/2018, and showed no evidence of hydronephrosis; possible stranding of the right kidney; the patient has a distended bladder but no obvious intravesical masses. ASSESSMENT AND PLAN: Ms. Reyes is a 68-year-old who presents in consultation regarding urinary retention and hematuria. The patient has history of chronic kidney disease, congestive heart failure, type 2 diabetes, hyperlipidemia, hypertension and rheumatoid arthritis. The patient states she has been having blood in her urine and passage of clots. On her CT scan, there is no obvious renal masses or obstruction. The patient did have a moderately distended bladder. I think the patient may have postdiuresis hematuria versus related to her infection. Her urine currently is clear yellow, with no evidence of clots. The patient's renal function has improved from a baseline of 2.8 when she came into the hospital, to 1.4 today. She has made good urinary output, with over 4 L recorded over the past 24 hours. She denies any flank or abdominal pain. The patient does describe a long history of urinary incontinence. Uncertain if this is related to overflow incontinence versus mixed urinary incontinence with stress and urgency component, as she describes both. I am concerned the patient may have some underlying overflow incontinence due to the swelling of her bladder on the CT scan. The patient's hemoglobin and hematocrit have slowly downtrended. With her urine being clear yellow today, the patient may have lost blood on prior days with hematuria, but I do not think that her current urine is leading to downtrending hematocrit and hemoglobin. Renal function continues to improve. I discussed with the patient and her family today regarding needing to perform cystoscopy to assess for etiology of this hematuria. I do think that it is likely related to distended bladder as well as urinary tract infection. The patient's blood cultures are negative; however, her urine culture is growing Escherichia coli. The patient is being followed by Infectious Disease for this. Recommend outpatient cystoscopy. We will tentatively plan to remove her urethral catheter tomorrow to see if she is able to urinate spontaneously. We will perform postvoid residuals after removal to ensure that she is adequately emptying. If the patient continues to have difficulty with voiding, likely will need indwelling catheter and outpatient management with possible urodynamics. The patient has diabetes and currently is on Ditropan and Elavil, which may be leading to some of her retention. The patient has been taking Elavil for a long time. The patient states that she takes whatever medications are recorded. Uncertain if she is taking Ditropan at home. We will continue to investigate. We will plan to remove the urethral catheter in the morning and follow up. Please call with questions or concerns. cc: Jaylan Dang MD MTDTabitha
[2018-10-23] MEDS: NORCO-10 PO PRN ×4 (00:09→15:20)
[2018-10-23] MEDS: LR 1,000 ML IV SCH ×2 (02:29→14:18)
[2018-10-23] MEDS: AZACTAM 2 GM in NS 100 ML IV SCH ×2 (05:06→14:14)
[2018-10-23] MEDS: HUMALOG SUBQ SCH ×3 (06:12→15:53)
--- NOTE | 2018-10-23 07:32 | PROGRESS NOTE ---
DATE: 10/23/2018 SUBJECTIVE: No acute events overnight. Patient states she rested comfortably. She describes a vague lower abdominal pain. Denies any vaginal or perineal pain. Denies any fevers or chills. She continues to make good urinary output through her urethral catheter draining clear yellow urine with no evidence of hematuria. 3.4 L have been recorded. The patient had a small bowel movement overnight. OBJECTIVE: Vital Signs: Temperature 98.4 degrees, heart rate 97, blood pressure 151/79, oxygen saturation 97% on room air. General: No acute distress. Resting quietly in bed. Alert and oriented x3. Respiratory: Good respiratory effort without audible wheezing or rales. Abdomen: Soft, nontender. No palpable masses. Genitourinary: No suprapubic tenderness. No CVA tenderness. Urethral catheter in place draining clear yellow urine. ASSESSMENT/PLAN: Mrs. Reyes is a 68-year-old with history of chronic kidney disease, congestive heart failure, type 2 diabetes, hyperlipidemia, hypertension, rheumatoid arthritis, who presents in evaluation for urinary retention and urinary tract infection. The patient has indwelling catheter in at this time. Initially, the patient states she was having hematuria which seemingly has resolved. Uncertain if this is related to distention of her bladder and subsequent decompression with Prado catheter placement versus a urinary tract infection. Recommended removal of catheter this morning with follow-up PVRs. I told the patient that she needs to notify nursing at the time of her voiding so that a bladder scan be can be performed. If the patient has elevated PVRs, will likely need to have indwelling catheter reinserted. The patient clinically seems to be improving. She has PICC line in place, is being followed by Infectious Disease with antibiotics for E. coli. If the patient is able to urinate today, the patient will follow up in Urology office with cystoscopy to evaluate for hematuria. I think that this is likely related to her urinary tract infection. However, patient has a long history of urinary incontinence, which could be overflow versus stress versus urge incontinence as she describes symptoms for all the above. We will continue to monitor in the outpatient setting. Please call with questions or concerns. cc: MD NELLY Escobar
[2018-10-23] MEDS: LANTUS INSULIN SUBQ SCH (09:54)
[2018-10-23] MEDS: DITROPAN PO SCH ×2 (09:55→14:21)
[2018-10-23] MEDS: DULCOLAX PR SCH (09:55)
[2018-10-23] MEDS: MIRALAX PO SCH (09:55)
[2018-10-23] MEDS: NORVASC PO SCH (09:55)
[2018-10-23 10:01] LABS: BASO# 0.05 X1000 (0.0-0.2); BASO% 0.7 % (0.0-0.8); EOS# 0.41 X1000 (0.0-0.7); EOS% 5.4 % (0.0-10.0); HEMATOCRIT 25.8 % (37.0-47.0); HEMOGLOBIN 8.1 g/dL (12.0-16.0); IMM GRAN# 0.02 X1000 (0.0-0.04); IMM GRAN% 0.3 % (0.0-0.5); LYMPH% 26.5 % (20.5-51.1); MCH 28.5 PG (27-31); MCHC 31.4 g/dL (33-37); MCV 90.8 FL (81-99); MONO# 0.51 X1000 (0.11-0.59); MONO% 6.8 % (1.7-9.3); MPV 8.3 FL (7.4-10.4); NEUT# 4.56 X1000 (1.4-6.5); NEUT% 60.3 % (42.2-75.2); PLT 425 X1000 (130-400); RBC 2.84 XMIL (4.2-5.4); RDW 15.7 % (11.5-14.5); WBC 7.55 X1000 (4.8-10.8)
[2018-10-23 10:16] LABS: CALCIUM 9.4 mg/dL (8.8-10.2); CREATININE 1.5 mg/dL (0.5-0.9); POTASSIUM 5.2 mmol/L (3.5-5.1)
--- NOTE | 2018-10-23 10:42 | INFECTIOUS DISEASE PROGRESS NO ---
DATE: 10/23/2018 PRESENT ILLNESS: Ms. eRyes has an Escherichia coli urinary tract infection with possible pyelonephritis and cystitis as seen on the CT scan. MEDICATIONS: She is receiving aztreonam 2 g IV every 8 hours. PHYSICAL EXAMINATION: Vital Signs: Temperature is 98.3 degrees, pulse rate 90, respiratory rate 17, blood pressure 171/76, O2 saturation is 97% on room air. General: This is a chronically ill- appearing elderly female. She is lying in the bed currently in no acute distress. HEENT: Atraumatic, normocephalic. Oral mucous membranes are pink and moist. Conjunctivae are pale. Neck: Supple. Trachea is midline. Cardiovascular: Heart rate and rhythm are regular. Normal sinus rhythm on the monitor. Systolic murmurs noted. Respiratory: Lung sounds are clear to auscultation bilaterally. Abdomen: Soft, obese and nontender. Bowel sounds are active. Integumentary: There is a PICC line to the left upper arm. The site is without edema, erythema, or drainage. Neurologic: She is awake, alert, oriented, and able to move around in the bed independently. LABORATORY AND X-RAY: None available today. ASSESSMENT AND PLAN: Ms. Reyes has an Escherichia coli urinary tract infection with a possible pyelonephritis and cystitis. She is receiving aztreonam, which we will continue. When she goes home, she will need to continue the medication for a total of 14 days, after which time we will repeat her urine culture and see her back in the office. If the culture is negative, we will remove the PICC line at that time. These plans have been discussed with and recommended by Dr. Alcocer. COMORBIDITIES: Comorbidities for Ms. Reyes include insulin-dependent diabetes mellitus, rheumatoid arthritis and congestive heart failure. Dictated by KENNA Flores for Yusuf Alcocer MD cc: Yusuf Alcocer MD [facility]ab[facility]a
[2018-10-23 16:18] VITALS: BP 178/77
--- NOTE | 2018-10-24 21:33 | DISCHARGE SUMMARY ---
ADMISSION DATE: 10/19/2018 DISCHARGE DATE: 10/23/2018 CONSULTANTS: Infectious Disease, Dr. Alcocer. Urology, Dr. Dang. PERTINENT STUDIES: Renal CT on 10/19/2018, showing abdominal hernia, constipation, likely pyelonephritis especially on the right, and cystitis. Initial WBC 12.5, discharge WBC 7.5. Initial hemoglobin 8.6, trended down to 6.8 after transfusion, back up to 8.1 at discharge. Initial creatinine 2.8, down to 1.5 on discharge. Urinalysis with large leukocytes, too-numerous- to-count WBCs, eay-uyczkgbw-fx-count RBCs, less than 10 epithelial cells, 3+ bacteria, 200 protein, large amount of blood. Folate 8.5. DISCHARGE DIAGNOSES: 1. Sepsis due to Escherichia coli urinary tract infection and right-sided pyelonephritis. 2. Hematuria. 3. Acute blood loss anemia. 4. Constipation. 5. Acute on chronic pain. 6. Hyperlipidemia. 7. Diabetes. 8. Acute kidney injury on chronic kidney disease 3. 9. Hypertension. HOSPITAL COURSE: The patient presented initially with 4 to 5 days of dysuria, hematuria, and low back and abdominal pain. She had subjective fever, chills, and body aches. Initial CT was concerning for UTI, pyelonephritis, as above. She was also found to have significant acute kidney injury with creatinine 2.8. She was placed on empiric antibiotic with aztreonam, given she had previously grown E. coli resistant to almost everything other than cephalosporins and carbapenems, and is significantly cephalosporin allergic. With fluids and treatment for infection, her acute kidney injury resolved rapidly. Her leukocytosis also resolved. Her hematuria persisted, despite improvement in her other studies and improvement in her symptoms, and she eventually began passing some clots, so Urology was involved. However, about that time, her hematuria began to resolve spontaneously. She did have some urinary retention issues, which there was some chronicity to. After discussion with Urology, she was given a spontaneous voiding trial with removal of her Prado, but she was unable to urinate sufficiently. Her postvoid residual was over 600. Because of this, the Prado was put back in and the plan is for her to follow up with Urology as an outpatient. Once patient was improved, transitioning to p.o. antibiotics was considered, but options were extremely limited. We eventually contacted Infectious Disease to ask for their opinion, but they thought that there were no good p.o. options and recommended placing a PICC for home aztreonam for 2 weeks, which was accomplished and set up. Her constipation noted on initial CT, improved with MiraLAX and bisacodyl. Her diabetes and blood pressure were reasonably controlled, although she did have some fairly significant elevations in blood pressure toward the end of her hospitalization as she became more volume repleted. So, she was started on Norvasc with some improvement. She was discharged home to continue IV antibiotics with aztreonam, follow up with Urology for further voiding trials and PCP for blood pressure check. Because of her symptoms, she was started on Ditropan initially, but this was discontinued when she had retention issues. Discontinuing the Ditropan did not seem to improve her retention. Based on how she does with her urinary retention, Elavil may also need to be discontinued at some point as it could potentially be contributing. DISCHARGE VITALS: Temperature 98.5 degrees, pulse 97, respirations 20, blood pressure 178/77, O2 saturation 99 on room air. DISCHARGE DIET: Low salt. DISCHARGE MEDICATIONS: Atorvastatin 20 mg p.o. at bedtime, Effexor 150 mg p.o. daily, Elavil 100 mg p.o. at bedtime, fenofibrate 54 mg p.o. at bedtime, Levemir 80 units subcutaneous daily as previously prescribed, lisinopril 20 mg daily, Zanaflex 1 tablet p.o. t.i.d., aztreonam 2 g q.8 hours for a total of 2 weeks, Norvasc 10 mg p.o. daily. FOLLOWUP AND PLAN: Patient discharging home on IV antibiotics as above. Follow up with Dr. Alcocer with ID for antibiotic management. Patient going home with indwelling Prado, to follow up with Urology in a week for further voiding trial. May need to come off of her Elavil if urinary retention continues to be an issue. Follow up with PCP for blood pressure check.
== END 2018-10-23 17:26 | disposition home health service (06) | DRG 872 ==
LOC: ED 12:11 → SUATTDRO 18:49 → 1N 18:49
PROVIDERS: ATTEND Internal Medicine

== ENCOUNTER 2019-04-29 16:21 | Inpatient (IN) ==
[2019-04-29] MEDS ORDERED: ZOSYN 4.5 GM in NS 100 ML IV ONE (16:41)
[2019-04-29] MEDS ORDERED: MORPHINE IV ONE (16:41)
[2019-04-29] MEDS ORDERED: ZOFRAN IV ONE (16:41)
[2019-04-29] MEDS ORDERED: NS 1,000 ML IV ONE ×2 (16:41)
--- NOTE | 2019-04-29 16:52 | EKG Report ---
Test Performed on : 04/29/2019 4:39:12 PM Test Reason : sob Blood Pressure : / mmHG Vent. Rate : 131 BPM Atrial Rate : 131 BPM P-R Int : 142 ms QRS Dur : 084 ms QT Int : 306 ms P-R-T Axes : 085 069 052 degrees QTc Int : 451 ms Sinus tachycardia. with premature supraventricular complexes. Septal infarct , age undetermined Abnormal ECG When compared with ECG of 02-JUN-2017 12:59, premature supraventricular complexes. are now present Septal infarct is now present Nonspecific T wave abnormality now evident in Inferior leads Nonspecific T wave abnormality no longer evident in Lateral leads Unconfirmed Result
[2019-04-29 17:10] LABS: BE -11.9 mmoll (-3.0-3.0); BLOOD TYPE ARTERIAL; HCO3-(ACT) 15.6 mmoll (20.0-26.0); METHB 1.2 % (0.0-1.5); O2(CT) 14.3 mL/dL (15.0-23.0); O2HB 94.6 % (95.0-99.0); PCO2(98.6) 29 mmHg (35-45); PO2(98.6) 108 mmHg (60-100); SAMPLE BLOOD; SAO2 95.9 % (95.0-100.0); THB 10.6 g/dL (11.5-17.4); pH(98.6) 7.28 (7.35-7.45)
[2019-04-29 17:11] LABS: ALLEN TEST NO; MODALITY ROOM AIR
[2019-04-29] MEDS ORDERED: PHENERGAN IM ONE (17:23)
[2019-04-29] MEDS ORDERED: MORPHINE IM ONE (17:23)
[2019-04-29] MEDS ORDERED: VANCOMYCIN 1 GM/NS 1 GM/250 ML IVPB IV ONE ×2 (17:33→19:30)
[2019-04-29 17:52] LABS: URINE SOURCE CATH
[2019-04-29 17:52] LABS: INR 0.95; PROTIME 13.1 Seconds (11.0-16.0); PTT 27.6 Seconds (22.3-41.8)
[2019-04-29 17:55] LABS: BILIRUBIN URINE NEGATIVE (NEGATIVE); BLOOD URINE TRACE (NEGATIVE); COLOR YELLOW; GLUCOSE URINE NEGATIVE (NEGATIVE); KETONE URINE NEGATIVE (NEGATIVE); LEUKOCYTES URINE LARGE (NEGATIVE); NITRITE URINE NEGATIVE (NEGATIVE); PROTEIN URINE 100 mg/dL (NEGATIVE); SP GRAVITY URINE 1.008; TURBIDITY URINE HAZY (CLEAR); UROBILINOGEN URINE NORMAL (NORMAL)
[2019-04-29 17:56] LABS: UR EPITHELIAL CELLS <10 /HPF (<10); URINE BACTERIA 1+ /HPF; URINE RBC <10 /HPF (<10); URINE WBC TNTC /HPF (<10)
[2019-04-29 18:00] LABS: BASO# 0.06 X1000 (0.0-0.2); BASO% 0.6 % (0.0-0.8); EOS# 0.45 X1000 (0.0-0.7); EOS% 4.2 % (0.0-10.0); HEMATOCRIT 26.7 % (37.0-47.0); HEMOGLOBIN 8.2 g/dL (12.0-16.0); IMM GRAN# 0.02 X1000 (0.0-0.04); IMM GRAN% 0.2 % (0.0-0.5); LYMPH# 2.54 X1000 (1.2-3.4); LYMPH% 23.6 % (20.5-51.1); MCH 29.5 PG (27-31); MCHC 30.7 g/dL (33-37); MONO# 0.86 X1000 (0.11-0.59); MPV 9.6 FL (7.4-10.4); NEUT# 6.81 X1000 (1.4-6.5); NEUT% 63.4 % (42.2-75.2); PLT 364 X1000 (130-400); RBC 2.78 XMIL (4.2-5.4); RDW 13.4 % (11.5-14.5); WBC 10.74 X1000 (4.8-10.8)
[2019-04-29 18:12] LABS: ESTIMATED GFR 9
[2019-04-29 18:13] LABS: AGAP 21; ALBUMIN 4.3 g/dL (3.5-5.0); ALKALINE PHOSPHATASE 107 U/L (32-104); BUN 70 mg/dL (8-22); CHLORIDE 107 mmol/L (98-107); CK PROFILE 51 U/L (24-173); COSMO 300; CREATININE 4.8 mg/dL (0.5-0.9); GLUCOSE 104 mg/dL (70-104); GOT 13 U/L (10-30); GPT 9 U/L (10-36); MAGNESIUM 1.6 mg/dL (1.5-2.7); POTASSIUM 4.9 mmol/L (3.5-5.1); SODIUM 140 mmol/L (136-145); TCO2 11 mmol/L (25-35); TOTAL BILIRUBIN < 0.15 mg/dL (0.20-1.00); TOTAL PROTEIN 6.9 g/dL (6.3-8.3)
--- NOTE | 2019-04-29 18:22 | Diag Imaging Result Doc PS360 ---
EXAM: CHEST-1 VIEW 04/29/2019 HISTORY: tachycardic TECHNIQUE: AP portable erect at 1812 COMMENT: There is a left subclavian central venous catheter with its tip in the superior vena cava. The inspiration is slightly less optimal than on 06/02/2017. Otherwise are has been no significant change. IMPRESSION: Stable chest. Electronically signed by Marcell Bautista 04/29/2019 6:19 PM
[2019-04-29 18:27] LABS: INFLUENZA A NEGATIVE (NEGATIVE); INFLUENZA B NEGATIVE (NEGATIVE)
[2019-04-29] MEDS ORDERED: ZOFRAN IV PRN (18:29)
[2019-04-29] MEDS ORDERED: VANCOMYCIN IV PER PHARMACY MISC SCH (18:30)
[2019-04-29] MEDS ORDERED: LOVENOX SUBQ SCH (18:30)
--- NOTE | 2019-04-29 18:32 | PROVIDER DOCUMENTATION ---
This chart was entered by Kimberly Leyva Scribe, acting as scribe for Bull Prasad MD. HPI-Cardiac General - General Chief Complaint: Palpitations Stated Complaint: CHEST PAIN Time Seen by Provider: 04/29/19 16:33 Source: patient, family Allergies/Adverse Reactions: Patient Allergies Allergy/AdvReac Type Severity Reaction Status Date / Time cephalexin [From Keflex] Allergy SWELLING Verified 04/22/18 17:25 lisinopril AdvReac SWELLING Verified 04/29/19 16:30 Home Medications: Home Medication List Medication Instructions Recorded Confirmed Last Taken Type Amitriptyline [Elavil] 100 mg PO HS 06/09/14 10/21/18 04/21/18 History Atorvastatin Calcium 20 mg PO HS 06/09/14 10/21/18 04/21/18 History Insulin Detemir [Levemir] 80 unit SUBQ DAILY 07/04/15 10/21/18 04/21/18 History Tizanidine [Zanaflex] 1 tab PO TID 07/04/15 10/21/18 04/21/18 History Venlafaxine E.r. [Effexor Xr] 150 mg PO DAILY 07/04/15 10/21/18 04/21/18 History Fenofibrate 54 mg PO HS 10/21/18 10/21/18 Unknown History Lisinopril 20 mg DAILY 10/21/18 10/21/18 Unknown History Amlodipine [Norvasc] 10 mg PO DAILY #30 tab 10/23/18 Unknown Rx Aztreonam 2 gm IJ Q8HR #1 vial 10/23/18 Unknown Rx - History of Present Illness-Cardiac Nature of Presenting Problem: 69 yowf presents w/family to er w/cc referred from Dr. Harrell office to er for palpitations. family at bedside sts that pt's HR was 130-135 all day. pt also reports nausea, cough and sob. no vomiting and diarrhea. pt last BM was last night. no sick contacts. hx of htn, dm and murmur. nonsmoker, no alcohol or drug use. Quality of Pain: reports: none Severity in ED: mild Onset/Duration: other (today) Timing: still present Context/Activities at Onset: reports: none Modifying Factors: improves with: nothing Palpitation Quality: fast/pounding heart beat History of arrythmia: reports: none Associated Symptoms: reports: nausea, shortness of breath. denies: fever/chills, vomiting Recently Seen Here or By Another Healthcare Provider: Yes (Dr. Sharri lopez today) Review of Systems - Adult - REVIEW OF SYSTEMS - ADULT Constitutional: reports: no symptoms reported. denies: chills, fever, fatique Eyes: reports: no symptoms reported Ears, Nose, Mouth & Throat: reports: no symptoms reported Cardiovascular: reports: see HPI, heart murmur (hx of murmur), irregular heart rate, palpitations. denies: edema, poor circulation, syncope Respiratory: reports: see HPI, cough, shortness of breath. denies: hemoptysis, pleurisy, wheezing Gastrointestinal: reports: see HPI, nausea. denies: diarrhea, difficulty swallowing, vomiting Genitourinary: reports: no symptoms reported Musculoskeletal: reports: no symptoms reported Integumentary: reports: no symptoms reported Neurological: reports: no symptoms reported Psychiatric: reports: no symptoms reported Endocrine: reports: no symptoms reported Hematologic/Lymphatic: reports: no symptoms reported Allergic/Immunologic: reports: no symptoms reported All Other Systems: Reviewed and Negative Past History - Adult - PAST MEDICAL HISTORY-ADULT Review of Records: reports: Nursing Assessment Review, Medications Reviewed, Social history reviewed & non-contributory. Major Childhood Illnesses: reports: denies history Cardiovascular: reports: CHF, HTN, murmur Respiratory: reports: denies history Gastrointestinal: reports: denies history Obstetrical/Gynecological: reports: denies history Genitourinary: reports: denies history Musculoskeletal: reports: arthritis (RA), chronic pain, orthopedic injury (shoulder) Neurological: reports: denies history Endocrine/Immune: reports: Diabetes Other Conditions: reports: denies history - PRIOR SURGERIES/PROCEDURES Surgical/Procedure History: reports: hysterectomy, hernia repair, orthopedic (extremity) - IMMUNIZATION STATUS Childhood Immunizations: See Nurse Assessment Flu Vaccine: See Nurse Assessment - FAMILY HISTORY Family History: reviewed, not pertinent - SOCIAL HISTORY Smoking: non-smoker Substance Use: none/never Physical Exam-General - PHYSICAL EXAM-ADULT Initial Vital Signs Reviewed: Yes - CONSTITUTIONAL General Appearance: appears well, alert, no apparent distress. negative: lethargic, slow to respond, obtunded - EYES Eyes: PERRL/EOMI - HEAD, EARS, NOSE, MOUTH & THROAT HENMT: normocephalic/atraumatic, moist mucous membranes - NECK Neck: non-tender, full range of motion, supple, normal inspection - RESPIRATORY Respiratory: chest non-tender, lungs clear, normal breath sounds, no pleuratic chest pain, no respiratory distress, no accessory muscle use. negative: respiratory distress, decreased breath sounds, accessory muscle use, wheezing - CARDIOVASCULAR Cardiovascular: normal peripheral pulses, no edema, no gallop, no JVD, tachycardia, systolic murmur (1/6 at apex). negative: regular rate, rhythm, no murmur, extra beats, friction rub, irregularly irregular - GASTROINTESTINAL (ABDOMEN) Abdominal Exam: normal bowel sounds, no organomegaly, no pulsatile mass, tenderness (periumbilcus hernia rt side on palp), hernia (pt has several ventral hernia. larger one is easily reducible. rt perumbilicus hernia is 6x6 or 7x7cm, firm, nonreducible and tender. no pernieal signs.). negative: non tender, soft, abnormal bowel sounds, guarding, rigid, rebound - MUSCULOSKELETAL Back Exam: normal inspection Extremity: normal range of motion, non-tender, normal inspection - SKIN Integumentary: normal color, normal turgor, warm/dry - NEUROLOGIC Neurologic: grossly normal, no motor/sensory deficits - PSYCHIATRIC Psych/Mental Status: normal mood/affect, normal thought content, normal thought process, oriented x 3 Progress - PLAN OF CARE/RESULTS Progress/Plan/Lab Results: Vital Signs - 8 hr 04/29/19 16:29 Temperature 98.2 F Pulse Rate 132 H Respiratory Rate 24 Blood Pressure 164/87 O2 Sat by Pulse Oximetry 96 Laboratory Results - last 24 hr 04/29/19 04/29/19 04/29/19 16:45 17:17 17:26 WBC RBC Hgb Hct MCV MCH MCHC RDW Std Deviation Plt Count MPV Immature Gran % (Auto) Neut % (Auto) Lymph % (Auto) [place] % (Auto) Eos % (Auto) Baso % (Auto) Immature Gran # (Auto) Neut # (Auto) Lymph # (Auto) [place] # (Auto) Eos # (Auto) Baso # (Auto) PT INR PTT (Actin FS) Specimen Type ARTERIAL Sample Site R BRACHIAL pH 7.28 L pCO2 29 L pO2 108 H HCO3 15.6 L Base Excess -11.9 L Oxyhemoglobin 94.6 L ABG O2 Sat (Calculated) 14.3 L ABG O2 Saturation 95.9 ABG Carboxyhemoglobin 0.20 ABG Methemoglobin 1.2 William Test NO A-a O2 Difference 5.0 Total Hemoglobin 10.6 L Lactate 0.40 L Blood Gas Modality ROOM AIR FiO2 % 21.0 Sodium Potassium Chloride Carbon Dioxide Anion Gap BUN Creatinine Estimated GFR/1.73 m2 BUN/Creatinine Ratio Glucose Calculated Osmolality Calcium Magnesium Total Bilirubin AST ALT Alkaline Phosphatase Creatine Kinase Troponin T High Sens Esp-R-Dvuwfslofox Pept Total Protein Albumin Globulin Albumin/Globulin Ratio Plasma Lactate 0.3 L TSH 3.59 Urine Source Urine Color Urine Turbidity Urine pH Ur Specific [place] Urine Protein Ur Glucose (Stick) Ur Ketones (Stick) Urine Blood Urine Nitrite Urine Bilirubin Urobilinogen Dipstick Urine Leukocytes Urine WBC (Auto) Urine RBC (Auto) U Epithel Cells (Auto) Urine Bacteria (Auto) Acetone Level 04/29/19 04/29/19 04/29/19 17:26 17:26 17:26 WBC 10.74 RBC 2.78 L Hgb 8.2 L Hct 26.7 L MCV 96.0 MCH 29.5 MCHC 30.7 L RDW Std Deviation 13.4 Plt Count 364 MPV 9.6 Immature Gran % (Auto) 0.2 Neut % (Auto) 63.4 Lymph % (Auto) 23.6 [place] % (Auto) 8.0 Eos % (Auto) 4.2 Baso % (Auto) 0.6 Immature Gran # (Auto) 0.02 Neut # (Auto) 6.81 H Lymph # (Auto) 2.54 [place] # (Auto) 0.86 H Eos # (Auto) 0.45 Baso # (Auto) 0.06 PT 13.1 INR 0.95 PTT (Actin FS) 27.6 Specimen Type Sample Site pH pCO2 pO2 HCO3 Base Excess Oxyhemoglobin ABG O2 Sat (Calculated) ABG O2 Saturation ABG Carboxyhemoglobin ABG Methemoglobin William Test A-a O2 Difference Total Hemoglobin Lactate Blood Gas Modality FiO2 % Sodium 140 Potassium 4.9 Chloride 107 Carbon Dioxide 11 L Anion Gap 21 BUN 70 H Creatinine 4.8 H Estimated GFR/1.73 m2 9 BUN/Creatinine Ratio 15 Glucose 104 Calculated Osmolality 300 Calcium 9.0 Magnesium 1.6 Total Bilirubin < 0.15 L AST 13 ALT 9 L Alkaline Phosphatase 107 H Creatine Kinase 51 Troponin T High Sens Wjp-O-Dwpfopzmxwl Pept Total Protein 6.9 Albumin 4.3 Globulin 3.0 Albumin/Globulin Ratio 2.0 Plasma Lactate TSH Urine Source Urine Color Urine Turbidity Urine pH Ur Specific [place] Urine Protein Ur Glucose (Stick) Ur Ketones (Stick) Urine Blood Urine Nitrite Urine Bilirubin Urobilinogen Dipstick Urine Leukocytes Urine WBC (Auto) Urine RBC (Auto) U Epithel Cells (Auto) Urine Bacteria (Auto) Acetone Level 04/29/19 04/29/19 04/29/19 17:26 17:26 17:26 WBC RBC Hgb Hct MCV MCH MCHC RDW Std Deviation Plt Count MPV Immature Gran % (Auto) Neut % (Auto) Lymph % (Auto) [place] % (Auto) Eos % (Auto) Baso % (Auto) Immature Gran # (Auto) Neut # (Auto) Lymph # (Auto) [place] # (Auto) Eos # (Auto) Baso # (Auto) PT INR PTT (Actin FS) Specimen Type Sample Site pH pCO2 pO2 HCO3 Base Excess Oxyhemoglobin ABG O2 Sat (Calculated) ABG O2 Saturation ABG Carboxyhemoglobin ABG Methemoglobin William Test A-a O2 Difference Total Hemoglobin Lactate Blood Gas Modality FiO2 % Sodium Potassium Chloride Carbon Dioxide Anion Gap BUN Creatinine Estimated GFR/1.73 m2 BUN/Creatinine Ratio Glucose Calculated Osmolality Calcium Magnesium Total Bilirubin AST ALT Alkaline Phosphatase Creatine Kinase Troponin T High Sens 36 H Adh-J-Ozjtitndjpq Pept 3833 H Total Protein Albumin Globulin Albumin/Globulin Ratio Plasma Lactate TSH Urine Source Urine Color Urine Turbidity Urine pH Ur Specific [place] Urine Protein Ur Glucose (Stick) Ur Ketones (Stick) Urine Blood Urine Nitrite Urine Bilirubin Urobilinogen Dipstick Urine Leukocytes Urine WBC (Auto) Urine RBC (Auto) U Epithel Cells (Auto) Urine Bacteria (Auto) Acetone Level NEGATIVE 04/29/19 17:28 WBC RBC Hgb Hct MCV MCH MCHC RDW Std Deviation Plt Count MPV Immature Gran % (Auto) Neut % (Auto) Lymph % (Auto) [place] % (Auto) Eos % (Auto) Baso % (Auto) Immature Gran # (Auto) Neut # (Auto) Lymph # (Auto) [place] # (Auto) Eos # (Auto) Baso # (Auto) PT INR PTT (Actin FS) Specimen Type Sample Site pH pCO2 pO2 HCO3 Base Excess Oxyhemoglobin ABG O2 Sat (Calculated) ABG O2 Saturation ABG Carboxyhemoglobin ABG Methemoglobin William Test A-a O2 Difference Total Hemoglobin Lactate Blood Gas Modality FiO2 % Sodium Potassium Chloride Carbon Dioxide Anion Gap BUN Creatinine Estimated GFR/1.73 m2 BUN/Creatinine Ratio Glucose Calculated Osmolality Calcium Magnesium Total Bilirubin AST ALT Alkaline Phosphatase Creatine Kinase Troponin T High Sens Rrt-S-Qwpmmwlcauj Pept Total Protein Albumin Globulin Albumin/Globulin Ratio Plasma Lactate TSH Urine Source CATH Urine Color YELLOW Urine Turbidity HAZY Urine pH 6.0 Ur Specific [place] 1.008 Urine Protein 100 A Ur Glucose (Stick) NEGATIVE Ur Ketones (Stick) NEGATIVE Urine Blood TRACE A Urine Nitrite NEGATIVE Urine Bilirubin NEGATIVE Urobilinogen Dipstick NORMAL Urine Leukocytes LARGE A Urine WBC (Auto) TNTC A Urine RBC (Auto) <10 U Epithel Cells (Auto) <10 Urine Bacteria (Auto) 1+ Acetone Level Orders Category Date Time Status Cardiac Monitoring DIRECTED Care 04/29/19 16:39 Active Consent for Test/Procedure DIRECTED Care 04/29/19 17:25 Active Finger Stick Blood Sugar (ED) DIRECTED Care 04/29/19 17:32 Active IV Insertion ORDERED Care 04/29/19 16:39 Completed Notify MD of + Sepsis Screen NOW Care 04/29/19 16:39 Active Notify Physician As Ordered Care 04/29/19 16:39 Active Nursing- Obtain EKG once Care 04/29/19 16:40 Active CHEST-1 VIEW [RAD] Stat Exams 04/29/19 16:[address] ABDOMEN/PELVIS W/O CONTRAST [CT] Stat Exams 04/29/19 18:25 Ordered ABG [RESP] Routine Lab 04/29/19 16:45 Completed ACETONE SERUM [CHEM] Stat Lab 04/29/19 17:26 Received BLOOD CULTURE [BLDCUL] Stat Lab 04/29/19 16:49 Ordered CBC WITH DIFF [HEME] Stat Lab 04/29/19 17:26 Completed CK PROFILE [SP CHEM] Stat Lab 04/29/19 17:26 Completed COMPREHENSIVE METABOLIC PANEL [CHEM] Stat Lab 04/29/19 17:[address] Stat Lab 04/29/19 17:32 Received LACTATE, PLASMA [CHEM] Lab 04/29/19 17:17 Completed LACTATE, PLASMA [CHEM] Lab 04/29/19 19:45 Uncollected LACTATE, PLASMA [CHEM] Lab 04/29/19 22:45 Uncollected MAGNESIUM [CHEM] Stat Lab 04/29/19 17:26 Completed PRO B-NATRIURETIC PEPTIDE Stat Lab 04/29/19 17:26 Completed PROTIME WITH INR [COAG] Stat Lab 04/29/19 17:26 Completed PTT [COAG] Stat Lab 04/29/19 17:26 Completed TROPONIN T HIGH SENSITIVITY Stat Lab 04/29/19 17:26 Completed TSH Stat Lab 04/29/19 17:26 Completed URINALYSIS W/POSS RFLX CULT [URINALYSIS] Stat Lab 04/29/19 17:28 Completed 0.9% Sodium Chloride Inj [Ns] 1,000 ml Med 04/29/19 16:41 Discontinued IV 999 mls/hr 0.9% Sodium Chloride Inj [Ns] 1,000 ml Med 04/29/19 16:41 Discontinued IV 999 mls/hr Morphine Med 04/29/19 17:23 Discontinued 4 mg IM NOW ONE Morphine Med 04/29/19 16:41 Discontinued 4 mg IV NOW ONE Ondansetron [Zofran] Med 04/29/19 16:41 Discontinued 4 mg IV NOW ONE Piperacillin/Tazobactam [Zosyn] 4.5 gm Med 04/29/19 16:41 Discontinued 0.9% Sodium Chloride Inj [Ns] 100 ml IV NOW Promethazine [Phenergan] Med 04/29/19 17:23 Discontinued 25 mg IM NOW ONE Vancomycin 1 gm/Ns Med 04/29/19 17:33 Active 1 gm in 250 ml IV NOW Oxygen Device Stat Oth 04/29/19 16:39 Active EKG [EKG] Stat Ther 04/29/19 16:40 Draft Result Diagrams: 04/29/19 17:26 04/29/19 17:26 - REASSESSMENT Reassessment #1 Time Reassessed: 17:08 Status: other (pt refused EJ) Reassessment #2 Time Reassessed: 18:27 Status: improving (Given IVF boluses, states feels better. Given Morphine/Phenergan IM. Vanco/Zosyn ordered for possible sepsis prior to creatine results. Patient has metabolic acidosis, likely secondary to renal tubular, not septic, not diabetic ketoacidosis. Discussed with Dr. Lowry, outside of fluids and antibiotics, no further ED treatment for acidosis is needed at this time.) - EKG 1 Time of EKG reading by physician:: 16:44 EKG Read and Signed by:: Bull Prasad EKG Interpretation (*Must complete 3 of following elements*): Abnormal Rate: 131 Rhythm: ST [place]: normal QRS: poor R wave progression MI Interval: normal ST Wave: normal Comments: NO STEMI - XRAY 1 XRAY Study: Chest Impression: Abnormal (Left SCV Central line in place, no ptx. Cardiomegaly, no acture infiltrate. Read by me at 1828) - CT/MRI 1 CT Study: Abdomen (non-contrast) Impression: See EMR Report CT Results: pending at this time. - CONSULTS/PCP/HOSPITALIST Notification #1 *Consult/PCP/Hospitalist*: Dr. Lowry Time Discussed: 18:18 Consult Disposition: Will see in ED, Admit Procedures - CENTRAL LINE Consent Form Signed?: Yes Time-Out Verification Completed?: Yes Central Line Lumen: triple Catheter: [place]: 12 Central Line Procedure Prep: Hand Hygeine Performed, Kit Utilized, Chloraprep, Sterile Body Drape Placed, Antibiotic-coated Catheter Used Patient Position (To prevent Air Embolism): Trendelenburg (SC/IJ) Central Line Position: subclavian (L) Ultrasound Guided?: No Hat, mask, sterile gown, & sterile gloves worn by physician?: Yes Site scrubbed vigorously for 30 seconds? (Groin: 2 min): Yes Anesthetic: 1%, Lidocaine/Xylocaine Volume of Anesthetic (ml's): 5 Post Procedure: Sutured in place, Sterile field maintained, BioPatch placed, Sterile dressing applied, Blood aspirated from each lumen, Placement verfied by XRAY Complications: none (single attempt seldinger technique) Departure - Departure Date of Disposition Decision: 04/29/19 Time of Disposition Decision: 18:28 DIAGNOSIS: Abdominal pain in female, Sinus tachycardia, Acute renal failure due to tubular necrosis, Complicated UTI (urinary tract infection) Disposition: ADMITTED INPATIENT 09 Certified Medical Emergency: Emergent Condition: Fair Referrals and Follow-Ups: Love Harrell MD [Primary Care Provider] - - Critical Care Note This patient required my direct & personal management of CC.: Yes Total Time (mins): 40 Critical Care Statement: This patient required my direct personal management to treat or rule out processes, the absence of which, could potentiallly result in sudden, clinically significant life or limb threatening deterioration. Attestation - Physician/ JAROD Attestation Patient care was provided by Advanced Practice Provider:: No The physician spent face to face time with patient:: Yes Advanced Practice Provider documentation review:: Supervising physician onsite and consulted in the evaluation and care of this patient. The physician did have a face to face encounter with the patient. This chart was documented by the indicated scribe, (Kimberly Leyva Scribe) and accurately reflects the services I performed and decisions made by me, Bull Prasad MD, as attested by the provider's signature.
--- NOTE | 2019-04-29 19:13 | Diag Imaging Result Doc PS360 ---
EXAM: CT ABDOMEN/PELVIS W/O CONTRAST 04/29/2019 HISTORY: abd pain, acute kidney injury TECHNIQUE: This exam was performed using automated exposure control, adjustment of mA or kV according to patient size, and/or use of iterative reconstruction technique. COMMENT: The current study is compared with the previous examination of 10/19/2018. There are some platelike opacities in the posterior costophrenic sulcus of the right lower lobe which were also present previously and may be related to fibrosis. There is enlargement of the medial lobe of the left adrenal gland which has not changed since the previous study. The gallbladder is somewhat distended. There is a questionable tiny stone present near the neck of the gallbladder. There are some calcifications in the pancreas which may be due to previous pancreatitis. This has not changed. There is a large amount of stool present in the colon. There is a fat-containing ventral hernia. There is a tear of ventral hernias present around image 96 more caudally one of which contains a loop of the transverse colon. This was also the case at the time the previous study. There is no apparent obstruction as there is considerable stool distal to this point. The small bowel is not distended. There is no free fluid. There has been hysterectomy. There is a Prado catheter in the bladder. The appendix is normal in appearance. There are spondylotic changes in the lower thoracic and lumbar spine. There is spinal stenosis at L3-4 and L4-5. There are apparent bilateral sacral insufficiency fractures which were not present at the time the previous study. IMPRESSION: 1. Constipation. Multiple ventral hernias without evidence of obstruction. 2. Bilateral sacral insufficiency fractures which were not present on 10/19/2018. Electronically signed by Marcell Bautista 04/29/2019 7:10 PM
[2019-04-29] MEDS: TYLENOL PO PRN (22:48)
[2019-04-30] MEDS: ZOSYN 2.25 GM in NS 50 ML IV SCH ×4 (00:25→20:37)
--- NOTE | 2019-04-30 02:12 | HISTORY AND PHYSICAL ---
CHIEF COMPLAINT: Palpitations. HISTORY OF PRESENT ILLNESS: The patient is a 69-year-old female who had gone to Dr. Harrell's office earlier and noted for palpitations, was noted to have a markedly elevated heart rate. Was felt to be in atrial fibrillation and was asked to come to the ER. She does have some nausea, coughing, shortness of breath. Denies vomiting. Denies diarrhea. Denies chest pains. ALLERGIES: Keflex causing swelling. Lisinopril causing swelling. MEDICATIONS: Elavil, calcium, Levemir 80, Effexor, fenofibrate, lisinopril, Norvasc 10. REVIEW OF SYSTEMS: Denies any chest pains, palpitations prior to today. Denies fevers or chills. Denies headaches, blurred vision, change in her vision. Denies dysuria. PAST MEDICAL HISTORY: Congestive heart failure, hypertension, history of systolic murmur, rheumatoid arthritis, chronic pain, diabetes. SURGICAL HISTORY: She has had a hysterectomy, hernia repair and orthopedic surgery. FAMILY HISTORY: Positive for diabetes. SOCIAL HISTORY: She denies smoking, drinking, or illicit substance use. PHYSICAL EXAMINATION: VITAL SIGNS: Reviewed. Temperature 98 degrees, pulse 130s to 150s, respiratory 20, BP 167/87, saturation 96. GENERAL: Patient is pleasant, currently in no respiratory distress. HEENT: Normocephalic. NECK: Supple. CARDIOVASCULAR: Tachycardia. Poor rate control. CHEST: Clear and nonlabored. No wheezing. ABDOMEN: Soft, nondistended. She does have a periumbilical hernia. LABORATORIES: Hemoglobin and hematocrit 8 and 26. Lactate 0.3, creatinine 4.8, BUN 70. normal at 36. ASSESSMENT: 1. Acute renal failure. 2. Volume depletion. 3. Probable urinary tract infection. 4. Supraventricular tachycardia. 5. Diabetes. 6. Congestive heart failure. PLAN: We are going to admit the patient to the hospital, attempt rate control, place her on sliding scale insulin, IV fluids, recheck her labs and we will follow. cc: Tremayne Lowry MD [facility]
--- NOTE | 2019-04-30 05:32 | EKG Report ---
Test Performed on : 04/30/2019 05:10:04 AM Test Reason : rhythm change Blood Pressure : / mmHG Vent. Rate : 127 BPM Atrial Rate : 127 BPM P-R Int : 146 ms QRS Dur : 076 ms QT Int : 304 ms P-R-T Axes : 080 081 082 degrees QTc Int : 441 ms Sinus tachycardia. Septal infarct (cited on or before 29-APR-2019) Abnormal ECG When compared with ECG of 29-APR-2019 16:39, (Unconfirmed) premature supraventricular complexes. are no longer present ST elevation now present in Inferior leads Confirmed by Von Jenkins MD ([id number]) on 04/30/2019 12:17:16 PM
[2019-04-30] MEDS: TYLENOL PO PRN ×3 (05:33→18:30)
[2019-04-30] MEDS ORDERED: ZOFRAN IV PRN (06:12)
[2019-04-30] MEDS ORDERED: VANCOMYCIN IV PER PHARMACY MISC SCH (06:15)
[2019-04-30 07:19] LABS: HEMATOCRIT 24.4 % (37.0-47.0); HEMOGLOBIN 7.4 g/dL (12.0-16.0); MCH 29.6 PG (27-31); MCHC 30.3 g/dL (33-37); MCV 97.6 FL (81-99); MPV 9.5 FL (7.4-10.4); RBC 2.5 XMIL (4.2-5.4); RDW 13.5 % (11.5-14.5); WBC 10.62 X1000 (4.8-10.8)
[2019-04-30 07:20] LABS: ALB/GLOB RATIO 1.3; ALBUMIN 3.4 g/dL (3.5-5.0); CALCIUM 8.4 mg/dL (8.8-10.2); CREATININE 4.8 mg/dL (0.5-0.9); MAGNESIUM 1.6 mg/dL (1.5-2.7); POTASSIUM 4.7 mmol/L (3.5-5.1); TOTAL BILIRUBIN 0.18 mg/dL (0.20-1.00); TOTAL PROTEIN 6.1 g/dL (6.3-8.3)
[2019-04-30 10:11] LABS: RETIC% 1.35 % (0.8-2.1); RETIC-HE 30.8 PG (28.2-36.6)
[2019-04-30 10:45] LABS: IRON SATURATION 24 %; TIBC 263 ug/dL; TOTAL IRON 64 ug/dL (49-151); UNBOUND IRON 199 ug/dL (112-346)
[2019-04-30 11:04] LABS: FERRITIN 127 ng/mL (13-150)
[2019-04-30] MEDS ORDERED: NS 500 ML IV ONE (15:03)
--- NOTE | 2019-04-30 15:45 | PROGRESS NOTE ---
DATE: 04/30/2019 SUBJECTIVE: Patient has no major complaints. OBJECTIVE: Blood pressure 151/106, heart rate of 64, respiratory rate of 17, temperature 98.6 degrees, 96% on room air.Cardiovascular: Regular rate and rhythm. Pulmonary: Bilateral breath sounds, clear to auscultation. GI: Soft, nontender, nondistended. Bowel sounds are positive. LABORATORY: White count is 10, hemoglobin has dropped to 7 and 24, platelets 307,000. Creatinine 4.8, bicarb of 14, TSH of 5.56. PROBLEM LIST: 1. Acute on chronic renal failure. There is no evidence of obstruction. Urine electrolytes in place, probably needs some gentle hydration and follow. 2. Anemia, which is apparently a chronic issue. Workup is in place. I think she would benefit from a transfusion with her cardiac history. 3. Congestive heart failure. Appears to be stable. 4. Type 2 diabetes. Continue sliding scale. We will check an A1c and follow blood sugars. cc: Jamil Álvarez MD
[2019-04-30] MEDS: NS 1,000 ML IV ONE ×2 (19:18→20:37)
[2019-04-30] MEDS: LOVENOX SUBQ SCH (20:37)
[2019-05-01] MEDS: TYLENOL PO PRN ×3 (00:42→16:08)
[2019-05-01] MEDS: ZOSYN 2.25 GM in NS 50 ML IV SCH ×4 (03:16→21:45)
[2019-05-01 03:53] LABS: UR CREAT RANDOM 19.3 mg/dL (11-20); UR PROT RANDOM 11.2 mg/dL
[2019-05-01] MEDS ORDERED: LANOXIN IV ONE (05:42)
[2019-05-01] MEDS ORDERED: LOPRESSOR IV ONE (05:42)
[2019-05-01 06:10] LABS: BASO# 0.06 X1000 (0.0-0.2); BASO% 0.6 % (0.0-0.8); EOS# 0.47 X1000 (0.0-0.7); EOS% 5.1 % (0.0-10.0); HEMATOCRIT 25.7 % (37.0-47.0); HEMOGLOBIN 8.1 g/dL (12.0-16.0); IMM GRAN# 0.02 X1000 (0.0-0.04); IMM GRAN% 0.2 % (0.0-0.5); LYMPH# 2.32 X1000 (1.2-3.4); MCH 29.8 PG (27-31); MCHC 31.5 g/dL (33-37); MCV 94.5 FL (81-99); MONO# 0.64 X1000 (0.11-0.59); MONO% 6.9 % (1.7-9.3); MPV 9.6 FL (7.4-10.4); NEUT# 5.76 X1000 (1.4-6.5); NEUT% 62.2 % (42.2-75.2); PLT 275 X1000 (130-400); RBC 2.72 XMIL (4.2-5.4); RDW 14.2 % (11.5-14.5); WBC 9.27 X1000 (4.8-10.8)
[2019-05-01 06:13] LABS: HEMOGLOBIN A1C 6.8 % (4.8-6.0)
[2019-05-01 06:21] LABS: CALCIUM 8.6 mg/dL (8.8-10.2); CREATININE 4.8 mg/dL (0.5-0.9); POTASSIUM 4.7 mmol/L (3.5-5.1)
--- NOTE | 2019-05-01 14:38 | NEPHROLOGY CONSULTATION ---
DATE: 05/01/2019 REASON FOR CONSULTATION: Acute kidney injury. HISTORY OF PRESENT ILLNESS: Ms. Reyes is a 69-year-old white female with a history of diabetes, hypertension and hyperlipidemia. She has known chronic kidney disease associated with neurogenic bladder. She has had a suprapubic catheter placed and indwelling. She has seen Dr. Brock on 1 occasion in our office where she was informed of her chronic kidney disease and medications were adjusted. The patient did not keep her scheduled followup. She was seen by Dr. Harrell because of palpitations. and was found to have markedly elevated heart rate, and was sent to the emergency room where she was diagnosed with atrial fibrillation with rapid ventricular response. These symptoms developed in the context of a couple weeks of nausea, cough, shortness of breath, declining functional status. PAST MEDICAL HISTORY: As above. HOME MEDICATIONS: Include amitriptyline, atorvastatin, tizanidine, insulin, venlafaxine, lisinopril, fenofibrate, gabapentin, tramadol, furosemide, iron. ALLERGIES: Cephalexin and lisinopril. SOCIAL HISTORY: She previously lived alone. Daughter has moved in with her. No alcohol or tobacco. FAMILY HISTORY: Otherwise noncontributory. REVIEW OF SYSTEMS: Noncontributory. PHYSICAL EXAMINATION: Vital Signs: Blood pressure 182/70, heart rate 85, respiration 18, afebrile. Generally: She is an elderly, white female sitting erect in no acute distress. Skin: Warm and dry. HEENT: Conjunctivae are pink. Pupils are equal. Oropharynx is clear. Normal tongue. Dentures. Neck: Supple. Trachea is midline. Neck veins are not distended in the erect position. Heart: PMI nonpalpable. Irregular rhythm. Murmur present. Lungs: Have equal breath sounds. No crackles or wheezes. Abdomen: Soft, obese, nontender. Bowel sounds present. Suprapubic catheter nontender. Extremities: With trace edema, left greater than right. Multiple varicose veins. Neurologic: Exam is nonfocal. IMPRESSION: Acute kidney injury overlying chronic kidney disease. Baseline creatinine around 1.8 when last seen by Dr. Brock. I believe that her acute kidney injury is related to her decompensated heart failure. Her labs have been stable since admission, and urine output is excellent. Her urinalysis discloses proteinuria, but minimal blood. Significant leukocytes and bacteria. She is being treated for her urinary tract infection with Zosyn and vancomycin. I will stop her vancomycin at this time. I think she is unlikely to require dialysis in the short term. cc: MD Jamil Hernandez MD
[2019-05-01] MEDS: MIRALAX PO SCH (14:50)
[2019-05-01] MEDS: SODIUM BICARBONATE 8.4% 150 MEQ in D5W 1,000 ML IV SCH (15:14)
[2019-05-01] MEDS ORDERED: ZOFRAN IV PRN (16:54)
[2019-05-01] MEDS: HUMULIN R SUBQ SCH (17:49)
[2019-05-01] MEDS: ZANAFLEX PO SCH (17:53)
[2019-05-01] MEDS: NEURONTIN PO SCH (17:53)
--- NOTE | 2019-05-01 21:19 | PROGRESS NOTE ---
DATE: 05/01/2019 SUBJECTIVE: Patient has no major complaints. OBJECTIVE: Blood pressure 193/67, heart rate 86, respiratory rate 18, temperature 98.6 degrees.Cardiovascular: Regular rate and rhythm. Pulmonary: Bilateral breath sounds. Clear to auscultation. Gastrointestinal: Soft, nontender, nondistended. Bowel sounds are positive. LABORATORY DATA: White count is 9, hemoglobin and hematocrit 8 and 25, BUN and creatinine is 71 and 4.8. PROBLEM LIST: 1. Acute on chronic renal failure. We will continue to monitor. 2. She has a urinary tract infection, but it is a gram-negative rita, and I agree with discontinuing vancomycin. We will discontinue that. She is on a sodium bicarbonate drip because of relative metabolic acidosis without a clear source. 3. Anemia. Improved with transfusion. Workup is pending. No evidence of gross bleeding at this time. 4. Congestive heart failure. We are waiting on her echocardiogram to better evaluate. It has been completed, but we will await. 5. Her Hemoccult was negative. We will wait the final results. I think she is stable enough to go to the floor. Appreciate Nephrology's input. cc: Jamil Álvarez MD [facility], [place]
[2019-05-01] MEDS: ELAVIL PO SCH (21:44)
[2019-05-01] MEDS: TRICOR PO SCH (21:44)
[2019-05-01] MEDS: LOVENOX SUBQ SCH (21:44)
[2019-05-01] MEDS: LACTULOSE PO SCH (21:44)
[2019-05-01] MEDS: LIPITOR PO SCH (21:45)
[2019-05-02] MEDS: HUMULIN R SUBQ SCH ×5 (00:11→21:53)
[2019-05-02] MEDS: ZOSYN 2.25 GM in NS 50 ML IV SCH ×2 (03:20→08:07)
[2019-05-02] MEDS: LACTULOSE PO SCH ×2 (08:06→22:43)
[2019-05-02] MEDS: EFFEXOR XR PO SCH (08:06)
[2019-05-02] MEDS: NEURONTIN PO SCH ×3 (08:06→17:03)
[2019-05-02] MEDS: ICAR-C PO SCH (08:06)
[2019-05-02 08:07] LABS: BASO# 0.04 X1000 (0.0-0.2); BASO% 0.4 % (0.0-0.8); EOS# 0.51 X1000 (0.0-0.7); EOS% 5.4 % (0.0-10.0); HEMOGLOBIN 8.1 g/dL (12.0-16.0); IMM GRAN# 0.02 X1000 (0.0-0.04); IMM GRAN% 0.2 % (0.0-0.5); LYMPH# 2.13 X1000 (1.2-3.4); LYMPH% 22.6 % (20.5-51.1); MCH 29.3 PG (27-31); MCHC 31.2 g/dL (33-37); MCV 94.2 FL (81-99); MONO# 0.71 X1000 (0.11-0.59); MONO% 7.5 % (1.7-9.3); MPV 9.9 FL (7.4-10.4); NEUT% 63.9 % (42.2-75.2); PLT 280 X1000 (130-400); RBC 2.76 XMIL (4.2-5.4); RDW 13.8 % (11.5-14.5); WBC 9.41 X1000 (4.8-10.8)
[2019-05-02] MEDS: MIRALAX PO SCH (08:07)
[2019-05-02] MEDS: ZANAFLEX PO SCH ×3 (08:07→17:02)
[2019-05-02 08:31] LABS: CALCIUM 8.6 mg/dL (8.8-10.2); CREATININE 4.9 mg/dL (0.5-0.9); POTASSIUM 4.6 mmol/L (3.5-5.1)
--- NOTE | 2019-05-02 09:30 | ECHO REPORT ---
ORDER DATE: 04/30/2019 MEASUREMENTS: Septal thickness 1.2, left ventricular internal diameter in diastole 4.2, posterior wall thickness 0.8, left ventricular internal diameter in systole 2.9, aortic root 3.6, left atrium 5.2. SUMMARY: 1. Adequate quality study. 2. Aortic valve is trileaflet and demonstrates a mild sclerotic change with adequate opening suggested. The peak gradient across the aortic valve is 34 mmHg, with a mean gradient of 23 mmHg. The calculated aortic valve area by Doppler is 1.2 to 1.3 cm2. Mild aortic stenosis is suggested. Mild mitral annular calcification is demonstrated. There is very mild mitral regurgitation. Tricuspid and pulmonic valves are without evidence of structural abnormality, with mild tricuspid regurgitation and trace pulmonic insufficiency. The estimated systolic PA pressure by Doppler is 30 mmHg. The aortic root is normal in size. 3. Normal left ventricular dimensions suggested. The estimated left ventricular ejection fraction appears to be at least 70%. No regional wall motion abnormality is evident. Moderate biatrial enlargement is demonstrated. The right ventricle is normal in size with grossly preserved right ventricular systolic function. 4. No pericardial effusion. 5. Appearance of the inferior vena cava suggests normal central venous pressure. CONCLUSIONS: 1. Mild aortic stenosis. 2. Mild mitral annular calcification with very mild mitral regurgitation. 3. Mild tricuspid regurgitation. 4. Estimated left ventricular ejection fraction at least 70%. 5. Moderate biatrial enlargement. cc: MD Jamil Packer MD
[2019-05-02] MEDS: SODIUM BICARBONATE PO SCH ×2 (13:55→22:41)
[2019-05-02] MEDS: MACROBID PO SCH ×2 (13:56→22:41)
--- NOTE | 2019-05-02 16:04 | PROGRESS NOTE ---
DATE: 05/02/2019 SUBJECTIVE: Patient has no major complaints. OBJECTIVE: Vitals: Blood pressure is 106/63, heart rate of 82, respiratory rate 20, temperature 98.8 degrees, 97% on room air. Cardiovascular: Regular rate and rhythm. Pulmonary: Bilateral breath sounds, diminished at bases. GI: Soft, nontender, nondistended. Bowel sounds are positive. LABORATORY DATA: White count 9, hemoglobin and hematocrit 8 and 26, platelets 280,000. Sodium 146. Bicarb is up to 17 from 14. Glucose 205. PROBLEM LIST: 1. Acute on chronic renal failure. She is stage IV on the cusp of stage 5. She does not have any acute indications for acute kidney injury, but she is still on the cusp of needing it. I switched her to sodium bicarbonate because I do not think the fluids at this point are doing anything except contributing to volume overload potentially. 2. Urinary tract infection. It is Escherichia coli, and it is multidrug resistant. She reports an allergy to Keflex. It is sensitive to aminoglycoside, but obviously it is not an option. We will just do Macrobid and see how she does on that. 3. Anemia with chronic inflammation, possibly due to her chronic renal failure. We will continue to monitor. 4. Reported congestive heart failure. Her echo though looks normal. There was no systolic dysfunction, EF is above 50%, and no clear indicators of diastolic dysfunction. DISPOSITION: I think she is close to a new baseline for her renal failure. Wait on nephrology re- evaluation, decide about when we can get her home, hopefully tomorrow. cc: Jamil Álvarez MD
[2019-05-02] MEDS: ULTRAM PO PRN (17:02)
[2019-05-02] MEDS ORDERED: VANCOMYCIN 1,400 MG in NS 250 ML IV SCH ×2 (19:30→20:00)
[2019-05-02] MEDS: TYLENOL PO PRN (22:40)
[2019-05-02] MEDS: LOVENOX SUBQ SCH (22:40)
[2019-05-02] MEDS: LIPITOR PO SCH (22:41)
[2019-05-02] MEDS: ELAVIL PO SCH (22:41)
[2019-05-02] MEDS: TRICOR PO SCH (23:04)
[2019-05-02] MEDS: SODIUM BICARBONATE 8.4% 150 MEQ in D5W 1,000 ML IV SCH (23:22)
[2019-05-03] MEDS: HUMULIN R SUBQ SCH ×4 (06:22→21:30)
--- NOTE | 2019-05-03 09:39 | NEPHROLOGY PROGRESS NOTE ---
DATE: 05/03/2019 TIME SEEN: 0700. SUBJECTIVE: Ms. Reyes is resting quietly in bed. She is sitting up on her own and states that she does have some left lower hip discomfort. OBJECTIVE: Vital Signs: Temperature 98.3 degrees, blood pressure 149/64, heart rate 102, respirations 14. She is on room air. Last recorded saturation 96%. She has had 1620 in, 2650 out. She is in a -9 L fluid balance. Labs are still pending this a.m. Her previous potassium was 4.6, BUN of 72, with a creatinine of 4.9, and hemoglobin of 8.1. Again, labs are still pending. Physical Examination: General: This is a 69-year-old, white female. She is resting quietly in bed. She appears chronically ill, in no acute distress. Skin is warm and dry. HEENT: Normocephalic, atraumatic. Conjunctivae are pale pink. She has ELIZABETH. Mucous membranes are moist. Neck: Supple. Trachea midline. She has no evidence of JVD in the erect position. Cardiovascular: Irregular rhythm. She has a soft systolic murmur that is present. Lungs: Clear to auscultation bilaterally. Equal excursion. She is without wheezes or rhonchi. Abdomen: Large, round, soft, nontender. Positive bowel sounds. Genitourinary: Not inspected. Prado catheter is in place with adequate urine output document. Suprapubic catheter in place also. Extremities: Have trace pretibial edema, left greater than right. Neurological: She is alert and oriented x3. ASSESSMENT AND PLAN: 1. Acute kidney injury overlying chronic kidney disease stage 3. Patient's baseline creatinine is 1.6 to 1.8. She has seen Dr. Brock once in our office. It appears that her acute kidney injury may be related to her decompensated heart failure and IV contrast. Labs are still pending this morning. She has had adequate urine output documented. Her vancomycin has been discontinued. Her Zosyn is renally dosed. We will continue to await for labs. She has no complaints. 2. Electrolytes and acid-base balance. These are pending. The patient has sodium bicarbonate by mouth. 3. Anemia. This has been low but stable. 4. Fluid volume overload. 5. Increased work of breathing. This has improved during her hospital stay. I would like to thank you for allowing us to follow with this patient. Dictated by KENNA Rodríguez for Myron Corye MD Face to face encounter, data reviewed, discussed with Maddy Weiss on 05/03/19. I agree with the above assessment and plan of care. cc: KENNA Rodríguez MD [facility] R. Penot, MD [facility]
[2019-05-03] MEDS: MIRALAX PO SCH (09:47)
[2019-05-03] MEDS: ZANAFLEX PO SCH ×3 (09:47→22:00)
[2019-05-03] MEDS: LACTULOSE PO SCH ×2 (09:47→22:00)
[2019-05-03] MEDS: MACROBID PO SCH (09:47)
[2019-05-03] MEDS: ICAR-C PO SCH (09:47)
[2019-05-03] MEDS: SODIUM BICARBONATE PO SCH ×2 (09:47→22:00)
[2019-05-03] MEDS: EFFEXOR XR PO SCH (09:47)
[2019-05-03] MEDS: NEURONTIN PO SCH ×3 (09:50→22:00)
[2019-05-03] MEDS: ULTRAM PO PRN (09:50)
[2019-05-03 12:27] LABS: ALBUMIN 3.7 g/dL (3.5-5.0); CALCIUM 8.5 mg/dL (8.8-10.2); CREATININE 5.3 mg/dL (0.5-0.9); PHOSPHORUS 5.9 mg/dL (2.7-4.5); POTASSIUM 4.2 mmol/L (3.5-5.1)
[2019-05-03] MEDS: TYLENOL PO PRN (16:34)
--- NOTE | 2019-05-03 18:57 | PROGRESS NOTE ---
DATE: 05/03/2019 SUBJECTIVE: The patient has no major complaints. She looks well. OBJECTIVE: Vital signs: Blood pressure is 161/69, heart rate 96, respiratory rate 22, temperature 98.8 degrees. Cardiovascular: Regular rate and rhythm. Pulmonary: Bilateral breath sounds, clear to auscultation. GI: Soft, nontender. Bowel sounds positive. Extremities: No clubbing or cyanosis. Lymphatic: No peripheral edema. Neurological: Nonfocal. LABORATORY DATA: White count: I do not have new data today. Creatinine is 5.3. PROBLEM LIST: 1. Acute kidney injury. She is on the stage. She has stage IV, although net today, she is stage V. She fell below 15, but it kind of hovers. She has obviously no acute indications for hemodialysis dialysis, but she is also not improving. She is on sodium bicarbonate for persistent acidosis. 2. Escherichia coli urinary tract infection. It is multidrug resistant, but is not an extended- spectrum beta lactamase, but she has a chronic indwelling Prado, so I do not think we are going to be able to get by just with Macrobid. She is allergic to cephalosporins and the only other thing it is sensitive to is aminoglycosides, which she cannot use because of renal failure, so it is a complicated situation. I am going to give her some aztreonam and get Dr. Alcocer' input and follow. 3. Diabetes. Appears to be stable. DISPOSITION: She looks good. She has a central line in place, so we could use that to give her another week of antibiotics at the discretion of Dr. Alcocer, but we will see how things look. cc: Jamil Álvarez MD
[2019-05-03] MEDS: ELAVIL PO SCH (22:00)
[2019-05-03] MEDS: AZACTAM 0.5 GM in NS 50 ML IV SCH (22:01)
[2019-05-03] MEDS: LOVENOX SUBQ SCH (22:01)
[2019-05-03] MEDS: TRICOR PO SCH (22:01)
[2019-05-03] MEDS: LIPITOR PO SCH (22:01)
[2019-05-04] MEDS: AZACTAM 0.5 GM in NS 50 ML IV SCH ×3 (03:45→20:55)
[2019-05-04] MEDS: HUMULIN R SUBQ SCH ×3 (06:46→16:20)
[2019-05-04 08:57] LABS: ALBUMIN 3.8 g/dL (3.5-5.0); CALCIUM 8.8 mg/dL (8.8-10.2); CREATININE 5.3 mg/dL (0.5-0.9); PHOSPHORUS 7.3 mg/dL (2.7-4.5); POTASSIUM 4.2 mmol/L (3.5-5.1)
--- NOTE | 2019-05-04 09:04 | INFECTIOUS DISEASE CONSULT REP ---
DATE: 05/04/2019 CONCLUSION: The patient has an Escherichia coli urinary tract infection. She said that with her urinary tract infection, she is having pain in both costovertebral angle areas, with it being greater in the left than the right side. Because of this, I think the infection is involving both of her kidneys. The patient has severe allergy to cephalexin, namely swelling. She told me specifically that her tongue swelled. RECOMMENDATIONS: I agree with treating the patient with Aztreonam. Some of the side effects of the antibiotic including rash and diarrhea have been explained to the patient who agrees with treatment. I would suggest treatment for a total of 2 weeks with aztreonam. DISCUSSION: The patient said approximately a week ago, she started having dysuria and bilateral costovertebral angle area pain with it being more severe in the left side than the right. She also noted that her urine was darker. The patient had a CT scan of the abdomen and pelvis. There were there were no abnormalities of the kidneys mentioned by the radiologists, and there was no evidence of obstruction or renal calculi. The patient's CBC shows a white count of 9410, hemoglobin is 8.1, platelet count is 280,000. Creatinine is 5.3. GFR is 8. Swab for influenza is negative. The patient had a chest x-ray and it shows a left subclavian central venous catheter in place. There was no mention made of any other abnormality. [employer] HISTORY: She is a 4, para 4, AB 0. She has had a hysterectomy and tubal ligation. REVIEW OF SYSTEMS: Eyes and ears: The patient says she hears and sees well. Neck: No stiffness. Respiratory: No cough or shortness of breath. Cardiac: No chest pain or palpitations. Genitourinary: See present illness. Bones/joints/muscles: The patient states that she for a long time has had bilateral knee pain and left shoulder pain which she attributes to arthritis. GI: No nausea, vomiting or diarrhea. PREVIOUS HOSPITALIZATIONS AND OPERATIONS: She has had 4 labor and deliveries, a hysterectomy, tubal ligation, surgery on her left ankle which was fractured, there are pins in the ankle. She, at [facility] last week, had a left sided subclavian catheter in place. The site is not erythematous or purulent. MEDICAL DISEASES: Positive for diabetes mellitus, hypertension, obesity, end-stage renal disease, and hyperlipidemia. INFECTIOUS DISEASE HISTORY: Positive for UTI, negative for pneumonia. FAMILY HISTORY: The patient is a . She lives with her daughter. She has cats for pets. She does not smoke, drink alcoholic beverages or abuse drugs. ALLERGIES: The patient is allergic to cephalexin, manifested by swelling. She also is allergic to lisinopril which caused her to have swelling also. HOME MEDICATIONS: Include the following: Amitriptyline, atorvastatin, fenofibrate, furosemide, gabapentin, insulin, lisinopril, Zanaflex, Tramadol, and Effexor. PHYSICAL EXAMINATION: Vital Signs: Temperature is 98.1 degrees, pulse 86, respirations 21, blood pressure is 149/70. Patient weighs 215 pounds. General: This is an obese, elderly female. She is in no acute distress. Head/eyes/ears/nose/throat: She can hear my spoken words and see near objects. She does not have any white patches in her mouth. Neck: No meningismus. Lungs: Clear to auscultation. Cardiovascular: Heart rate is regular with a systolic murmur. Abdomen: Abdomen and flanks with no tenderness. Neurologic: The patient is alert. She is able to ambulate. She does not have any tremor. Her memory as regarding her medical history was just minimally off, but for the most part, she did know most of her medical history. Integument: No rash noted. Thank you for the consultation. cc: MD Jamil Yang MD
[2019-05-04] MEDS: EFFEXOR XR PO SCH (09:31)
[2019-05-04] MEDS: ULTRAM PO PRN (09:31)
[2019-05-04] MEDS: SODIUM BICARBONATE PO SCH ×2 (09:31→20:57)
[2019-05-04] MEDS: NEURONTIN PO SCH ×3 (09:31→20:56)
[2019-05-04] MEDS: ICAR-C PO SCH (09:31)
[2019-05-04] MEDS: ZANAFLEX PO SCH ×3 (09:31→20:57)
[2019-05-04] MEDS: LACTULOSE PO SCH ×2 (09:32→20:56)
[2019-05-04] MEDS: MIRALAX PO SCH (09:32)
[2019-05-04] MEDS: TYLENOL PO PRN ×2 (11:15→20:57)
--- NOTE | 2019-05-04 12:52 | NEPHROLOGY PROGRESS NOTE ---
DATE: 05/04/2019 TIME SEEN: 06:50. SUBJECTIVE: Ms. Reyes is resting quietly in bed. States that she is feeling great. No nausea, no vomiting, no chest pain. States her heart rate has been controlled. OBJECTIVE: Vital Signs: Temperature 98.1 degrees, blood pressure 149/70, heart rate 86, respirations 21. She is on room air, last recorded saturation 96%. She has had 1001 in, she has had 2975 out. She is in a -11 L fluid balance. LABORATORY DATA: Sodium 141, potassium 4.2, chloride 106, CO2 18, BUN 67, creatinine 5.3, glucose 100, her anion gap is 17, calcium 8.8. Phosphorus 7.3, albumin 3.8. Previous hemoglobin 8.1. PHYSICAL EXAMINATION: General: This is a 69-year-old, white female who is currently resting quietly in bed, she has no acute distress. Skin: Warm and dry. HEENT: Normocephalic, atraumatic. Conjunctivae pale. She has ELIZABETH. Mucous membranes are moist. Neck: Supple. Trachea midline. No JVD. Cardiovascular: Irregular rate and rhythm. Rate controlled. Soft systolic murmur. Lungs: Clear to auscultation bilaterally. Equal excursion on room air. Abdomen: Large, round, soft, nontender. Positive bowel sounds. Genitourinary: Not inspected. Prado catheter is in place. Adequate urine output has been documented. Suprapubic catheter without redness or drainage to insertion site. Extremities: Have trace pretibial edema, left greater than right. Neurological: She is alert and oriented x3. ASSESSMENT AND PLAN: 1. Acute kidney injury overlying chronic kidney disease stage III. Patient's baseline creatinine is 1.6 to 1.8. Her creatinine has stabilized with a BUN of 67 and a creatinine of 5.3 today, the same as yesterday. Adequate urine output has been documented. No indications for intervention. We will continue to monitor. Her vancomycin has been discontinued. She remains on renal dosed Zosyn. If discharged, we will follow labs twice weekly and office visit every two weeks. rg 2. Electrolytes, acid-base balance and anemia. These are all acceptable. 3. Chest pain. This has improved. 4. Urinary tract infection. Patient continues on renal dosed Zosyn. 5. Fluid volume overload. This is improved. She is in an 11 L fluid balance. I would like to thank you for allowing us to follow with this patient. Dictated by KENNA Rodríguez for Myron Corey MD Face to face encounter, data reviewed, discussed with Maddy Weiss on 05/04/19. I agree with the above assessment and plan of care. cc: KENNA Rodríguez MD [facility] Penot, [facility]
--- NOTE | 2019-05-04 18:40 | PROGRESS NOTE ---
DATE: 05/04/2019 SUBJECTIVE: Patient has no major complaints. She wants to go home. She has been saying that for 3 days. OBJECTIVE: Vital signs: Blood pressure 154/70, heart rate of 88, respiratory rate of 18, temperature 98.2 degrees, 97% on room air. Cardiovascular: Regular rate and rhythm. Pulmonary: Bilateral breath sounds. Clear to auscultation. GI: Soft, nontender, nondistended. Bowel sounds are positive. LABORATORY DATA: Creatinine 5.3, which is stable. PROBLEM LIST: 1. Acute kidney injury. She is now stage 5 officially, but no acute indications for dialysis. Renal is following. At this point, not much else to do but observe. She will either improve or progress towards needing hemodialysis. 2. Escherichia coli urinary tract infection with multidrug resistance, although not an extended spectrum beta-lactamase. It is sensitive to cephalosporins. She seems to be responding to aztreonam. Dr. Alcocer feels like she needs aztreonam for at least up to 2 weeks. May try to see if we can do 10 days just because her IV access is an issue. 3. Diabetes. Appears to be stable. DISPOSITION: If we can get home health set up, anticipate discharge tomorrow, but I do not have that data right in front of me. cc: Jamil Álvarez MD
[2019-05-04] MEDS: ELAVIL PO SCH (20:56)
[2019-05-04] MEDS: LIPITOR PO SCH (20:56)
[2019-05-04] MEDS: TRICOR PO SCH (20:57)
[2019-05-04] MEDS: LOVENOX SUBQ SCH (20:57)
[2019-05-05] MEDS: AZACTAM 0.5 GM in NS 50 ML IV SCH ×2 (03:01→12:00)
[2019-05-05] MEDS: HUMULIN R SUBQ SCH ×3 (03:57→12:00)
[2019-05-05] MEDS: ULTRAM PO PRN (06:23)
[2019-05-05 07:52] LABS: ALBUMIN 3.6 g/dL (3.5-5.0); CALCIUM 8.5 mg/dL (8.8-10.2); CREATININE 5.1 mg/dL (0.5-0.9); PHOSPHORUS 6.8 mg/dL (2.7-4.5); POTASSIUM 4.2 mmol/L (3.5-5.1)
[2019-05-05 08:41] VITALS: BP 175/81
[2019-05-05] MEDS: MIRALAX PO SCH (10:17)
[2019-05-05] MEDS: EFFEXOR XR PO SCH (10:17)
[2019-05-05] MEDS: ICAR-C PO SCH (10:17)
[2019-05-05] MEDS: NEURONTIN PO SCH (10:17)
[2019-05-05] MEDS: ZANAFLEX PO SCH (10:18)
[2019-05-05] MEDS: SODIUM BICARBONATE PO SCH (10:18)
[2019-05-05] MEDS: LACTULOSE PO SCH (10:18)
[2019-05-05] MEDS: TYLENOL PO PRN (10:22)
[2019-05-05 10:25] LABS: URINE SOURCE CATH
--- NOTE | 2019-05-05 10:27 | NEPHROLOGY PROGRESS NOTE ---
DATE: 05/05/2019 TIME SEEN: 06:35. SUBJECTIVE: Ms. Reyes is resting quietly in bed. Head of the bed is slightly elevated. She states that she is feeling well. Denies chest pain or increased work of breathing. OBJECTIVE: Vital Signs: Temperature 98 degrees, blood pressure 158/66, heart rate 90, respirations 17. She is on room air, last recorded saturation 93%. She has had 840 in, she has had 2400 out to Prado catheter, suprapubic. LABORATORY DATA: Are currently pending. Previous potassium 4.2, CO2 of 18, BUN 67 with a creatinine of 5.3, hemoglobin of 8.1. Labs are pending this a.m. PHYSICAL EXAMINATION: General: This is a 69-year-old, white female resting quietly in bed. She is in no acute distress. Skin: Warm and dry. HEENT: Normocephalic, atraumatic. Conjunctivae pale. She has ELIZABETH. Mucous membranes are moist. Neck: Supple. Trachea midline. No evidence of JVD. Cardiovascular: Irregular rate and rhythm. Rate controlled. She has a soft systolic murmur. Lungs: Clear to auscultation bilaterally. Equal excursion. She is on room air. Abdomen: Large, round, soft, nontender. Positive bowel sounds. Genitourinary: Not inspected. Prado catheter is in place, suprapubic, which is documented. No redness or drainage at the site. Extremities: No edema, no clubbing or cyanosis. Neurological: Alert and oriented x3. ASSESSMENT AND PLAN: 1. Acute kidney injury overlying chronic kidney disease stage III. Patient's baseline creatinine is 1.6 to 1.8. Her creatinine stabilized yesterday at 5.3. She continues with adequate urine output. No indications for intervention. We can continue to monitor. From our perspective, if she is discharged, we will have labs drawn twice weekly and plan for office visit in 2 weeks. 2. Electrolytes, acid-base balance. These are pending. These have been stable. 3. Chest pain. This has resolved. 4. Urinary tract infection. Patient remains on renal dosed Zosyn. 5. Anemia. This is low but stable. I would like to thank you for allowing us to follow with this patient. Dictated by KENNA Rodríguez for Myron Corey MD Face to face encounter, data reviewed, discussed with Maddy Weiss on 05/05/19. I agree with the above assessment and plan of care. cc: KENNA Rodríguez MD Alexis R. Penot, MD [facility]
[2019-05-05 10:31] LABS: BILIRUBIN URINE NEGATIVE (NEGATIVE); BLOOD URINE NEGATIVE (NEGATIVE); COLOR YELLOW; GLUCOSE URINE 100 mg/dL (NEGATIVE); KETONE URINE NEGATIVE (NEGATIVE); LEUKOCYTES URINE TRACE (NEGATIVE); NITRITE URINE NEGATIVE (NEGATIVE); PROTEIN URINE 30 mg/dL (NEGATIVE); SP GRAVITY URINE 1.012; TURBIDITY URINE CLEAR (CLEAR); UROBILINOGEN URINE NORMAL (NORMAL)
[2019-05-05 10:35] LABS: UR EPITHELIAL CELLS <10 /HPF (<10); URINE BACTERIA NEGATIVE /HPF; URINE RBC <10 /HPF (<10)
[2019-05-05 10:44] LABS: URINE YEAST PRESENT
--- NOTE | 2019-05-05 11:51 | INFECTIOUS DISEASE PROGRESS NO ---
DATE: 05/05/2019 PRESENT ILLNESS: The patient has E coli urinary tract infection, with involvement of the kidneys. The patient has severe allergy to cephalosporin antibiotic, namely cephalexin, manifested by angioedema with specifically swelling of her tongue. MEDICATIONS: The patient is on aztreonam, the dose of which has been modified because of the patient's renal failure. The dose is 500 mg IV every 8 hours. PHYSICAL EXAMINATION: Vital Signs: Temperature is 98.6 degrees, pulse 95, respirations 18, blood pressure is 175/81. General: This is an obese, elderly female. She is in no acute distress. Head/eyes/ears/nose/throat: She can hear my spoken words and see near objects. She does not have any white coating on her tongue. Neck: No pain with movement. Lungs: Clear to auscultation. Cardiovascular: Heart rate is regular, with a systolic murmur. Thorax: The patient has a left- sided subclavian catheter in place. The catheter site is not erythematous or purulent. Abdomen: Abdomen and flanks soft and nontender. Neurologic: The patient is alert, she is able to ambulate, she does not have a tremor. LAB AND X-RAY: The patient's creatinine is 5.1, GFR is 8. There is no new radiographic study for today. A CBC was ordered on the patient but it is not done yet. ASSESSMENT AND PLAN: The patient has a E coli urinary tract infection with involvement of the kidneys, and because of her very serious cephalosporin drug allergy, she is being treated with aztreonam. The patient has had 4 days of treatment with a aztreonam therefore I have requested that the patient have 10 more days of treatment with the aztreonam to complete a 14-day treatment course. I have put in a consult for [facility] to supply the antibiotic. Following that, after the patient finishes her antibiotic we will wait about a week and have her give a urine culture to see if the patient has gotten return of the infection. If the repeat urine culture is negative, then the patient will have her subclavian catheter removed and she will not require any further antibiotics. COMORBIDITIES: The patient is elderly, she also is a diabetic and she is obese. She also has end- stage renal disease. cc: MD Jamil Yang MD [facility]
[2019-05-05 12:34] LABS: BASO# 0.06 X1000 (0.0-0.2); BASO% 0.5 % (0.0-0.8); EOS# 0.38 X1000 (0.0-0.7); EOS% 3.3 % (0.0-10.0); HEMOGLOBIN 7.9 g/dL (12.0-16.0); IMM GRAN# 0.02 X1000 (0.0-0.04); IMM GRAN% 0.2 % (0.0-0.5); LYMPH% 11.3 % (20.5-51.1); MCH 29.7 PG (27-31); MCHC 31.6 g/dL (33-37); MONO# 0.54 X1000 (0.11-0.59); MONO% 4.7 % (1.7-9.3); MPV 9.1 FL (7.4-10.4); NEUT# 9.24 X1000 (1.4-6.5); PLT 296 X1000 (130-400); RBC 2.66 XMIL (4.2-5.4); RDW 13.4 % (11.5-14.5); WBC 11.54 X1000 (4.8-10.8)
--- NOTE | 2019-05-05 16:11 | DISCHARGE SUMMARY ---
ADMISSION DATE: 04/29/2019 DISCHARGE DATE: 05/05/2019 DISCHARGE DIAGNOSES: 1. Acute kidney injury with chronic renal failure. 2. 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 3. Type 2 diabetes. CONSULTATIONS: 1. Infectious Disease: Dr. Alcocer 2. Nephrology: Dr. Corey HISTORY: A 69-year-old female. She came in kind of sick, ill, overall not well, and volume depleted. Her initial creatinine is 4.8 with no other stigmata of renal failure. Her urine electrolytes were pretty nonspecific. She had an echo obtained because there was questionable CHF and her ejection fraction is 70%, mild aortic stenosis, mild mitral regurgitation, and mild tricuspid regurgitation. Dr. Corey was consulted and recommended continuing her medications. Bement it was unlikely for Nephrology to see anything. She really never improved. Her last creatinine before admission was around 1.8, which that was in 2018 maybe so unclear what her baseline is currently. She was 1.6, but that was in October of 2017. She has progressed now to stage 4 to 5, but there is no acute indications for dialysis. She did have a UTI because she has got a chronic indwelling Prado. Her urine culture showed E. Coli that was resistant to most penicillin type antibiotics, sensitive to cephalosporins and aminoglycosides. Dr. Alcocer recommended aztreonam which we actually started at renal dosing, and she will go home on aztreonam for another 2 weeks. She has a central line placed, and we will be using that. DISCHARGE MEDICATIONS: 1. Atorvastatin 20. 2. Effexor XR 150. 3. Amitriptyline 100. 4. Fenofibrate 54. 5. Gabapentin 400 t.i.d. 6. Icar C daily. 7. Lasix 20 daily. 8. Levemir 80 units daily. 9. Lisinopril 20 b.i.d. 10. Tramadol 50 p.r.n. 11. Zanaflex 4 t.i.d. 12. Aztreonam per his orders, 500 IV q.8 for 10 days. DISCHARGE CONDITION: Stable. The patient discharged in stable condition. TIME SPENT: 32 minutes. cc: MD Myron Tvaeras MD Marlin D. Gill, MD
== END 2019-05-05 13:55 | disposition home health service (06) | DRG 699 ==
LOC: P.ED 16:21 → SUATTDRO 21:20 → 2N 21:20 → 4N 05-02 18:16
PROVIDERS: ADMIT Internal Medicine; ATTEND Internal Medicine